=== PATIENT | male | born 1930 | race Caucasian/White ===

== ENCOUNTER 2017-02-04 13:02 | Outpatient (CLI) | payer MEDICARE, OTHER | END 2017-02-04 13:03 | disposition home or self-care (01) | LOC: SC 13:02 | PROVIDERS: ATTEND Internal Medicine Pulmonary Disease | DX: G47.30 Sleep apnea, unspecified (principal); G47.10 Hypersomnia, unspecified; R06.83 Snoring | CPT/HCPCS: 99203; G0463; 99212 ==

== ENCOUNTER 2017-02-18 09:40 | Outpatient (CLI) | payer MEDICARE, OTHER | END 2017-02-18 09:41 | disposition home or self-care (01) | LOC: SC 09:40 | PROVIDERS: ATTEND Internal Medicine Pulmonary Disease | DX: G47.33 Obstructive sleep apnea (adult) (pediatric) (principal) | CPT/HCPCS: 99213; G0463; 99212 ==

== ENCOUNTER 2017-09-26 14:45 | Observation (INO) | payer MEDICARE, OTHER ==
--- NOTE | 2017-09-26 15:24 | ED Physician Documentation ---
PD HPI FOCAL NEURO - Stated complaint Stated Complaint: UNSTEADY,TROUBLE TALKING,WEAK,LOW PULSE - Chief complaint Chief Complaint: Neuro - History obtained from History obtained from: Patient, Family (Daughter and ) - History of Present Illness Timing - onset: Yesterday (This is an 86-year-old gentleman with history of paroxysmal atrial fibrillation on Xarelto and Coreg who has had 2 episodes of the last couple of days. Yesterday he became very weak while walking and was slumping over to the right and the daughter describes right facial droop. They noted that his blood pressure at the time was at his baseline but his blood pressure cuff read a pulse of 31 and he had noted some episodes of bradycardia over the prior week but those were asymptomatic. It is similar episode today but the blood pressure cuff was not readily available and he had memory difficulties at the time to and is now back to normal. There are no recent medication changes.) Review of Systems Ten Systems: 10 systems reviewed and negative Constitutional: denies: Fever, Chills Cardiac: denies: Chest pain / pressure, Palpitations Respiratory: denies: Dyspnea, Cough GI: denies: Abdominal Pain Neurologic: denies: Headache PD PAST MEDICAL HISTORY - Past Medical History Cardiovascular: Coronary artery disease, Atrial fibrillation - Past Surgical History Past Surgical History: Yes Cardiovascular: Coronary stent - Present Medications Home Medications: Ambulatory Orders Medication Instructions Recorded Confirmed Calcium Carb, Citrate/Vit D3 1 tab ORAL DAILY 01/21/15 01/21/15 [Calcium + D3 ER Tablet] Carvedilol [Coreg] 25 mg PO DAILY 01/21/15 01/21/15 Nitroglycerin 0.4 mg SL DAILY PRN 01/21/15 01/21/15 Rivaroxaban [Xarelto] 20 mg PO DAILY 01/21/15 01/21/15 Simvastatin [Zocor] 20 mg PO DAILY 01/21/15 01/21/15 - Allergies Allergies/Adverse Reactions: Allergies Allergy/AdvReac Type Severity Reaction Status Date / Time JORDANA Inhibitors Allergy Edema Verified 09/26/17 14:59 ARB-Angiotensin Receptor Allergy Edema Verified 09/26/17 14:59 Antagonist - Social History Does the pt smoke?: No Smoking Status: Never smoker PD ED PE NORMAL - Vitals Vital signs reviewed: Yes - General General: Alert and oriented X 3, No acute distress - HEENT HEENT: PERRL, EOMI - Neck Neck: Supple, no meningeal sign, No bony TTP - Cardiac Cardiac: RRR, No murmur - Respiratory Respiratory: No respiratory distress, Clear bilaterally - Abdomen Abdomen: Normal bowel sounds, Soft, Non tender - Extremities Extremities: No edema, No calf tenderness / cord - Neuro Neuro: Alert and oriented X 3, Normal speech Eye Opening: Spontaneous Motor: Obeys Commands Verbal: Oriented GCS Score: 15 NIHSS - Time Time: 15:15 - Level of Consciousness Level of consciousness: (0) Alert, Keenly responsive LOC Questions: (0) Answers both Q's correct LOC Commands: (0) Performs both correctly - Gaze Best Gaze: (0) Normal - Visual Visual: (0) No loss - Facial Palsy Facial Palsy: (0) Normal, symmetrical movement - Motor Arms (both separate) Motor Arm (right): (0) No drift Motor Arm (left): (0) No drift - Motor Legs (both separate) Motor Leg (right): (0) No drift Motor Leg (left): (0) No drift - Limb Ataxia Limb Ataxia: (0) Absent - Best Language Best Language: (0) No aphasia - Dysarthria Dysarthria: (0) Normal - Extinction and Inattention (formally neg Extinction and inattention: (0) No abnormality Results - Vitals Vitals: Vital Signs - 24 hr 09/26/17 14:49 Temperature 36.2 C L Heart Rate 61 Respiratory 18 Rate Blood Pressure 145/76 H O2 Saturation 97 Oxygen O2 Source Room air - Labs Labs: Laboratory Tests 09/26/17 09/26/17 09/26/17 15:25 15:25 15:25 WBC 9.0 RBC 4.23 L Hgb 13.3 L Hct 39.7 L MCV 93.8 MCH 31.5 H MCHC 33.6 RDW 15.3 H Plt Count 193 MPV 8.1 Neut # (Auto) 5.8 Lymph # (Auto) 1.9 [place] # (Auto) 1.1 H Eos # (Auto) 0.2 Baso # (Auto) 0.0 Absolute Nucleated RBC 0.00 Nucleated RBC % 0.0 Sodium 140 Potassium 4.1 Chloride 104 Carbon Dioxide 29 Anion Gap 7.0 BUN 22 H Creatinine 0.8 Estimated GFR (MDRD) 92 Glucose 112 H Calcium 9.2 Magnesium 2.0 Total Bilirubin 0.5 AST 19 ALT 13 Alkaline Phosphatase 48 Troponin I < 0.04 Total Protein 6.8 Albumin 3.6 Globulin 3.2 Albumin/Globulin Ratio 1.1 Lipase 28 - Rads (name of study) CT Head Radiology: EMP read contemporaneously (Chronic microvascular changes without acute disease) PD MEDICAL DECISION MAKING - ED course ED course: 86-year-old gentleman with history of paroxysmal atrial fibrillation on Coreg 25 mg twice daily presents with what sounds like TIAs and symptomatic bradycardia episodes, this was not reproduced in the emergency department, but he has had some bradycardic episodes that were monitored at home. His exam now was normal. Seems like the thing to do would be to place him in observation and drop or discontinue the Coreg to see if he has further episodes, if he does he may need a pacemaker but if cessation of beta blockade is curative that would be all he needs. Spoke with Dr. Whitfield for observation at 1609. - Sepsis Event Vital Signs: Vital Signs - 24 hr 09/26/17 14:49 Temperature 36.2 C L Heart Rate 61 Respiratory 18 Rate Blood Pressure 145/76 H O2 Saturation 97 Oxygen O2 Source Room air Departure - Departure Disposition: ED Place in Observation Clinical Impression: TIA (transient ischemic attack), Symptomatic bradycardia Condition: Stable
[2017-09-26 15:36] LABS: BASOPHILS % (AUTO) 0.5 %; EOSINOPHILS # (AUTO) 0.2 10^3/uL (0.0-0.7); EOSINOPHILS % (AUTO) 1.8 %; HGB - HEMOGLOBIN 13.3 g/dL (14.0-18.0); LYMPHOCYTES # (AUTO) 1.9 10^3/uL (1.5-3.5); LYMPHOCYTES % (AUTO) 21.7 %; MEAN CORPUSCULAR HEMOGLOBIN 31.5 pg (27.0-31.0); MEAN CORPUSCULAR HGB CONC 33.6 g/dL (32.0-36.0); MEAN CORPUSCULAR VOLUME 93.8 fL (80.0-94.0); MEAN PLATELET VOLUME 8.1 fL (7.4-11.4); MONOCYTES # (AUTO) 1.1 10^3/uL (0.0-1.0); MONOCYTES % (AUTO) 11.9 %; NEUTROPHILS # (AUTO) 5.8 10^3/uL (1.5-6.6); NEUTROPHILS % (AUTO) 64.1 %; PLT - PLATELET COUNT 193 10^3/uL (130-450); RED BLOOD COUNT 4.23 10^6/uL (4.70-6.10); RED CELL DISTRIBUTION WIDTH 15.3 % (12.0-15.0)
[2017-09-26 15:49] LABS: ALBUMIN 3.6 g/dL (3.2-5.5); ALBUMIN/GLOBULIN RATIO 1.1 (1.0-2.2); BILIRUBIN,TOTAL 0.5 mg/dL (0.2-1.0); CALCIUM 9.2 mg/dL (8.5-10.3); CREATININE 0.8 mg/dL (0.6-1.2); TOTAL PROTEIN 6.8 g/dL (6.7-8.2)
--- NOTE | 2017-09-26 16:00 | CT Report ---
Procedure Date: 09/26/2017 Accession Number: [id number] / [id number] Procedure: CT - Head W/O CPT Code: FULL RESULT: EXAM: CT HEAD EXAM DATE: 09/26/2017 03:32 PM. CLINICAL HISTORY: Word-finding difficulties and fatigue and altered mental status. COMPARISON: None. TECHNIQUE: Multiaxial CT images were obtained from the foramen magnum to the vertex. Reformats: Sagittal and coronal. IV contrast: None. In accordance with CT protocol optimization, one or more of the following dose reduction techniques were utilized for this exam: automated exposure control, adjustment of mA and/or KV based on patient size, or use of iterative reconstructive technique. FINDINGS: Parenchyma: No intraparenchymal hemorrhage. No evidence of mass, midline shift, or CT findings of acute infarction. [place]-white differentiation is distinct. Diffuse chronic microangiopathic white matter changes are evident. 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 Extraaxial Spaces: Normal for age. No subdural or epidural collections identified. Ventricles: The ventricles and cortical sulci are enlarged, consistent with age-related tissue loss. Sinuses and orbits: Imaged paranasal sinuses, orbits, and mastoids show no significant abnormality. Bones: No evidence of fracture or calvarial defect. Other: Extensive calcifications are present in the cavernous carotid and vertebral arteries. Status post bilateral cataract procedures. IMPRESSION: 1. No acute intracranial abnormality. 2. Moderate microangiopathic ischemic changes. 3. Moderate cerebral and cerebellar volume loss. RADIA
[2017-09-26] MEDS ORDERED: SODIUM CHLORIDE FLUSH 0.9% 10 ML SYRINGE IVP PRN (16:35)
--- NOTE | 2017-09-26 16:37 | HISTORY & PHYSICAL EXAMINATION ---
Chief Complaint - Chief Complaint Chief Complaint: syncope History of Present Illness - Admitted From Admitted From:: ED - History Obtained From Records Reviewed: yes History obtained from: chart review, patient Exam Limitations: none - History of Present Illness HPI Comment/Other: Romero Arellano (Bob) is an 86-year old male with a past medical history of hypertension, hyperlipidemia, atrial fibrillation-on Xarelto, CAD-post coronary stent, CHF, MAUREEN-on CPAP x7 months, prostate CA, BPH, nocturia, cataract surgery , and previous hernia surgeries. Itz was has been noticing a "low heart rate with increased fatigue" in the past 2 months. Yesterday he was [place] with his [place] and had to wall-walk the entire time there. His family noticed some right facial droop, mild drooling, expressive aphasia, right upper body drift, and when asked about his flying history by a bystander, the patient could not get any words out. He was brought to the ED for further evaluation. Once in the ED, the patient had a resolution of symptoms, but remained with mild delayed responses, and some sluggish speech. Vital signs show a mild hypertension of 145/76, heart rate in the 60's, normal breathing with normal oxygen saturation. Labs show a slight anemia with an H/H of 13.3/ 39.7, normal electrolytes, and a negative troponin. On my exam the patient is neuro intact, normal exam, and still has some word finding difficulties. He will be admitted to observation status for further evaluation of this bradycardia and TIA. History - Past Medical History Cardiovascular: reports: Congestive heart failure, Hypertension, High cholesterol, Coronary artery disease, Atrial fibrillation, Murmur, Arrhythmia Respiratory: reports: Sleep apnea, CPAP use Neuro: reports: TIA Endocrine/Autoimmune: denies: Type 2 diabetes GI: reports: GERD BRAID CUTTER: reports: None : reports: Benign prostate hypertrophy, Nocturia HEENT: reports: Chronic vision loss, Chronic hearing loss Psych: reports: None Musculoskeletal: reports: Chronic back pain Derm: reports: None MRSA Hx?: No - Past Surgical History General: reports: Bowel surgery, Other (multiple hernia surgeries) Cardiovascular: reports: Coronary stent, Cardiac catheterization, Angioplasty HEENT: reports: Cataracts - Family & Social History Family History: Mother: , Father: , Cancer, Sister: Alive and Well Family History Comment/Other: The patient's mother lived until age 80 and from a brain aneurysm. His father of lung cancer in his 60's. His only sister is alive and well with heart disease. Living arrangement: At home Living Situation: With spouse/s.o. 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 He lives independently with his . He enjoys golfing. He denies tobacco, alcohol or illicit drug use. He wishes to be a DNR. - Substance History Use: Uses substance without health or social issues: NONE Abuse: Recurrent use of substance despite neg consequences: NONE Dependence: Experiences withdrawal or developed tolerances: NONE - POLST Patient has POLST: No POLST Status: DNR Meds/Allgy - Home Medications Home Medications: Ambulatory Orders Medication Instructions Recorded Confirmed Calcium Carb, Citrate/Vit D3 1 tab ORAL DAILY 01/21/15 09/26/17 [Calcium + D3 ER Tablet] Carvedilol [Coreg] 25 mg PO BID 01/21/15 09/26/17 Nitroglycerin 0.4 mg SL Q5M PRN 01/21/15 09/26/17 Rivaroxaban [Xarelto] 20 mg PO QDDINNER 01/21/15 09/26/17 Simvastatin [Zocor] 20 mg PO QPM 01/21/15 09/26/17 - Allergies Allergies/Adverse Reactions: Allergies Allergy/AdvReac Type Severity Reaction Status Date / Time JORDANA Inhibitors Allergy Edema Verified 09/26/17 14:59 ARB-Angiotensin Receptor Allergy Edema Verified 09/26/17 14:59 Antagonist Review of Systems - Constitutional Constitutional: reports: Fatigue, Weakness - Eyes Eyes: reports: Corrective lenses - Ears, Nose & Throat Ears, Nose & Throat: reports: Hearing loss - Cardiovascular Cariovascular: reports: Irregular heart rate, Edema, Syncope - Genitourinary Genitourinary: reports: Nocturia - Musculoskeletal Musculoskeletal: reports: Back pain (chronic) - Integumentary Integumentary: reports: Dryness - Neurological Neurological: reports: General weakness, Dizziness, Memory problems, Pre- existing deficit, Slurred speech (sluggish) - All Other Systems All Other Systems: reports: Reviewed and negative Exam - Vital Signs Reviewed Vital Signs: Yes Vital Signs: Vital Signs x48h Temp Pulse Resp BP Pulse Ox 09/26/17 14:49 36.2 C L 61 18 145/76 H 97 - Physical Exam General Appearance: positive: No acute distress, Alert Eyes Bilateral: positive: Normal inspection, PERRL ENT: positive: ENT inspection nml, Pharynx nml, Pharyngeal erythema, Dry mucous membranes Neck: positive: Nml inspection, Thyroid nml, No JVD, Trachea midline Respiratory: positive: Chest non-tender, No respiratory distress, Breath sounds nml Cardiovascular: positive: No gallop, Irregularly irregular, Systolic murmur, Decreased pulse(s) Peripheral Pulses: positive: 2+ Abdomen: positive: Non-tender, Nml bowel sounds Back: positive: Nml inspection Skin: positive: No rash, Warm, Dry Extremities: positive: Non-tender, Pedal edema Neurologic/Psychiatric: positive: Oriented x3, CN's nml (2-12), Motor nml, Sensation nml, Weakness, Sensory loss, Slurred/abnml speech, Depressed mood/ affect Reflexes: Bicep (R): 3+, Bicep (L): 3+ Conclusion/Plan - Problem List (1) Symptomatic bradycardia Conclusion/Plan: The patient admits to having symptoms for the past 2 months with slightly increased ataxia. He recently has been taking his blood pressure which has been slightly elevated; on 09/21/17 it was 152/87 HR 64, and 145/77 HR 31. This may have been in response to his high dose beta ned of coreg 25 mg BID. I suspect that the bradycardia is the result of his Coreg dosing. His heart has become more efficient and likely improved right sided heart pressures since being compliant with his home CPAP ~7 months ago, thereby decreasing the need for this higher dose. Plan to monitor on telemetry and likely start a very low dose of coreg at 3.125 mg BID. Plan: Continue syncope work up including orthostatic blood pressures and await echo results. (2) TIA (transient ischemic attack) Conclusion/Plan: The patient's explanation of symptoms including a right facial droop, right sided drift, and weakness have subsided. Since arriving in the hospital, the patient has had a full resolution, with the exception of some slight expressive aphasia. I have ordered a head MRI, as central/Zoya infarct is high on the differential list. Plan: Continue work up, resume Xarelto, give high dose Atorvastatin and ASA. (3) MAUREEN on CPAP Conclusion/Plan: The patient first developed atrial fibrillation about 3 years ago, which was likely a consequence of his undiscovered sleep apnea. He states that he got a sleep study as a result of an echocardiogram that was obtained by his analysis analyst in [place]. For the past ~7 months, he has been compliant and states that his apnea #s per hour went from 90 episodes to only 1-3 times per hour. Now that he has had several months of compliance, I suspect that his RVSP at rest is much improved. I have requested records from [facility] cardiology. I have ordered an echo. Plan: Continue to encourage compliance, and await echo results. (4) Hypertension Conclusion/Plan: The patient is only on coreg for this, but was noted to be hypertensive upon admission and is likely a consequence of his profound bradycardia. Plan: Continue to monitor on telemetry. HOLD coreg and he will likely be on a devastatingly low dose (~3.125mg PO). Qualifiers: Hypertension type: essential hypertension Qualified Code(s): I10 - Essential (primary) hypertension - Lab Results Lab results reviewed: Yes Hair Bones: 09/26/17 15:25 09/26/17 15:25 - Diagnostic Imaging Results Diagnostic Imaging Results: positive: Prelim report reviewed, Final report reviewed - EKG Results EKG Interpreted Independently: Yes Core Measures - Anticipated LOS I expect patient to be DC'd or transferred within 96 hours.: Yes - DVT/VTE - Prophylaxis VTE/DVT Device ordered at admit?: Yes VTE/DVT Prophylaxis med ordered at admit?: Yes - Stroke - Rehab Assessment Rehab services assessment to be ordered?: Yes - AMI - Statin at Admit Aspirin Prescribed on Admit: Yes
[2017-09-26] MEDS ORDERED: NITROGLYCERIN 0.4 MG SL PRN (17:43)
[2017-09-26] MEDS ORDERED: RIVAROXABAN 20 MG PO SCH (18:00)
--- NOTE | 2017-09-26 20:36 | ADVANCE CARE PLANNING NOTE ---
Advance Care Planning - Date/Time Date: 09/26/17 Time: 20:35 - Code Status Code Status: Attempt Resuscitation
[2017-09-26] MEDS ORDERED: ATORVASTATIN 40 MG TABLET PO SCH (21:00)
[2017-09-26] MEDS: SODIUM CHLORIDE FLUSH 0.9% 10 ML SYRINGE IVP SCH (21:57)
--- NOTE | 2017-09-26 23:19 | Ultrasound Report ---
Procedure Date: 09/26/2017 Accession Number: [id number] / [id number] Procedure: US - Carotid Doppler Complete CPT Code: FULL RESULT: EXAM: BILATERAL CAROTID AND VERTEBRAL ARTERY DUPLEX DOPPLER ULTRASOUND: EXAM DATE: 09/26/2017 10:35 PM CLINICAL HISTORY: Syncope. COMPARISON: None. TECHNIQUE: Grayscale imaging, color Doppler, and duplex spectral Doppler were used to evaluate the carotid and vertebral arteries bilaterally. Static images were obtained. FINDINGS: Moderate atheromatous plaques are present in the right carotid bulb extending into the internal carotid artery. Spectral broadening with elevated velocities at the origin of the right internal carotid artery is compatible with a stenosis of 50-69%. Moderate atheromatous plaques are present in the left carotid bulb extending into the internal carotid artery. However, no hemodynamically significant stenoses are noted. Visualized portions of the neck soft tissues are grossly unremarkable. Both vertebral arteries are antegrade in flow. Normal antegrade flow is present in bilateral vertebral arteries. VELOCITIES (cm/sec): Right: RCCA Prox: PSV 70.0 cm/sec. RCCA Dist: PSV 55.5 cm/sec, EDV 11.7 cm/sec. RECA: PSV 100.6 cm/sec. R Bulb: PSV 100.1 cm/sec, EDV 13.5 cm/sec, ICA/CCA ratio 1.8. TRELL Prox: PSV 182.3 cm/sec, EDV 43.3 cm/sec, ICA/CCA ratio 3.3, degree of stenosis >50%%. TRELL Mid: PSV 99.3 cm/sec, EDV 18.3 cm/sec, ICA/CCA ratio 1.8. TRELL Dist: PSV 79.7 cm/sec, EDV 30.1 cm/sec, ICA/CCA ratio 1.4. RVA: PSV 44.1 cm/sec. RVA flow direction: Antegrade. Left: LCCA Prox: PSV 57.1 cm/sec. LCCA Dist: PSV 100.0 cm/sec, EDV 26.80 cm/sec. LECA: PSV 90.2 cm/sec. L Bulb: PSV 75.6 cm/sec, EDV 18.7 cm/sec, ICA/CCA ratio .7. LICA Prox: PSV 70.1 cm/sec, EDV 17 cm/sec, ICA/CCA ratio .7. LICA Mid: PSV 76.5 cm/sec, EDV 22.9 cm/sec, ICA/CCA ratio .8. LICA Dist: PSV 67.8 cm/sec, EDV 14.3 cm/sec, ICA/CCA ratio .7. LVA: PSV 28.5 cm/sec. LVA flow direction: Antegrade. ICA diameter stenosis: Right: 50-69% by velocity and <70% by NASCET criteria. Left: <50% by velocity and <70% by NASCET criteria. IMPRESSION: 1. Moderate bilateral carotid artery plaquing. 2. On the right, 50-69% stenosis at the origin of the right internal carotid artery. 3. In the left carotid artery there are no elevated carotid artery velocities to suggest hemodynamically significant stenosis. 4. Normal antegrade flow is present in bilateral vertebral arteries. General Recommendations: Stenosis =50% ICA - Follow-up ultrasound 6-12 months Stenosis <50% ICA - High Risk Patient with plaque - Follow-up ultrasound 1-2 years Normal Study but High Risk Patient - Follow-up ultrasound 3-5 years Management recommendations and diagnostic criteria are based on current IAC endorsed standards in Carotid Artery Stenosis: Grayscale and Doppler Ultrasound Diagnosis. Validated velocity measurements with angiographic measurements and velocity criteria are extrapolated from diameter data as defined by the Society of Radiologists in Ultrasound Consensus Conference Radiology 2003; 229;340-346. RADIA
[2017-09-26] MEDS: ASPIRIN 325 MG TABLET PO SCH (23:50)
[2017-09-27] MEDS: SODIUM CHLORIDE FLUSH 0.9% 10 ML SYRINGE IVP SCH ×2 (00:01→08:11)
[2017-09-27 04:41] LABS: BASOPHILS % (AUTO) 0.5 %; EOSINOPHILS # (AUTO) 0.2 10^3/uL (0.0-0.7); HGB - HEMOGLOBIN 13.2 g/dL (14.0-18.0); LYMPHOCYTES # (AUTO) 1.9 10^3/uL (1.5-3.5); LYMPHOCYTES % (AUTO) 22.8 %; MEAN CORPUSCULAR HEMOGLOBIN 30.8 pg (27.0-31.0); MEAN CORPUSCULAR HGB CONC 32.5 g/dL (32.0-36.0); MEAN CORPUSCULAR VOLUME 94.6 fL (80.0-94.0); MEAN PLATELET VOLUME 8.5 fL (7.4-11.4); MONOCYTES % (AUTO) 11.4 %; NEUTROPHILS # (AUTO) 5.4 10^3/uL (1.5-6.6); NEUTROPHILS % (AUTO) 63.3 %; PLT - PLATELET COUNT 186 10^3/uL (130-450); RED BLOOD COUNT 4.28 10^6/uL (4.70-6.10); RED CELL DISTRIBUTION WIDTH 15.3 % (12.0-15.0); WHITE BLOOD COUNT 8.5 x10^3/uL (4.8-10.8)
[2017-09-27 04:57] LABS: ALBUMIN 3.1 g/dL (3.2-5.5); ALKALINE PHOSPHATASE 42 IU/L (42-121); ALT ALANINE AMINOTRANSFERASE 12 IU/L (10-60); AST ASPARTATE AMINOTRANSFERASE 19 IU/L (10-42); BILIRUBIN,TOTAL 1.1 mg/dL (0.2-1.0); BUN - BLOOD UREA NITROGEN 19 mg/dL (6-20); CALCIUM 8.7 mg/dL (8.5-10.3); CARBON DIOXIDE - CO2 28 mmol/L (21-32); CHLORIDE 103 mmol/L (101-111); CHOLESTEROL 125 mg/dL; CREATININE 0.9 mg/dL (0.6-1.2); GFR - MDRD 80 (>89); GLUCOSE 99 mg/dL (70-100); HDL CHOLESTEROL 42 mg/dL; LDL CHOLESTEROL,CALCULATED 72 mg/dL; LDL/HDL RATIO 1.7 (<3.6); SODIUM 137 mmol/L (135-145); TOTAL PROTEIN 6.2 g/dL (6.7-8.2); VLDL CHOLESTEROL 11 mg/dL
[2017-09-27 06:12] LABS: HB2 TOTAL 13.8 g/dL; HEMOGLOBIN A1C 0.55 g/dL; HEMOGLOBIN A1C % 5.8 % (4.6-6.2)
[2017-09-27 07:51] VITALS: BP 160/90
[2017-09-27] MEDS: ASPIRIN 325 MG TABLET PO SCH (08:10)
[2017-09-27] MEDS ORDERED: POLYETHYLENE GLYCOL 3350 17 GM PACKET PO SCH (09:00)
--- NOTE | 2017-09-27 13:20 | MRI Report ---
Procedure Date: 09/27/2017 Accession Number: [id number] / [id number] Procedure: MRI - Brain W/O CPT Code: FULL RESULT: EXAM: MRI BRAIN WITHOUT CONTRAST EXAM DATE: 09/27/2017 11:36 AM. CLINICAL HISTORY: Syncope. Dizziness COMPARISON: CT head without contrast 09/26/2017. TECHNIQUE: Multiplanar, multisequence T1-weighted and fluid-sensitive MR sequences of the brain were performed. Sequences optimized for routine evaluation. Other: None. IV Contrast: None. FINDINGS: 9.3 mm diffusion restriction in the left globus pallidus (image 104 series 505) compatible with recent infarct. Focus is correlated to hyperintensity on T2-weighted imaging, and hypointensity on T1-weighted sequence suggestive of infarct at least 16 hours old. There is no evidence for hemorrhage, midline shift or hydrocephalus. Diffusion-weighted sequence shows otherwise normal. 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 There are dilated perivascular spaces in the basal ganglia bilaterally. There is chronic infarct in the left postcentral gyrus superiorly. Major intracranial flow voids are preserved. Orbits, paranasal sinuses and mastoid air cells are unremarkable. The chiasm, pituitary, cavernous sinus and Meckel's cave appear unremarkable. Craniocervical junction and visualized upper cervical cord unremarkable. IMPRESSION: 1. 9.3 mm focus of recent infarct in the left globus pallidus, signal suggestive of infarct at least 16 hours old. 2. No intracranial hemorrhage, midline shift or hydrocephalus. 3. Confluent white matter T2 hyperintensities, most likely chronic microvascular angiopathy. 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 RADIA The above findings were discussed with Dr. Bhaskar Sharp by Dr. Wei Toledo at 13:18 hrs on 09/27/17.
--- NOTE | 2017-09-27 14:19 | Discharge Plan ---
Discharge Plan Disposition: Home, Self Care Condition: Poor Prescriptions: Simvastatin [Zocor] 80 mg PO QPM #20 tablet Diet: Cardiac Activity Restrictions: Activity as Tolerated Shower Restrictions: No (fall precaution) Instruction Topics: Stroke Ischemic, Simvastatin tablets Additional Instructions or Follow Up instructions: You may see your PCP in 3-4 days, see lap welder in one week, and see neurologist as out-pt. After consulting with neurologist, you may continue to have Xarelto as your schedule, increase your simvastatin to 80 mg daily. You may follow up your lap welder to monitor your low heart rate, your Coreg is hold now. The hydrochlorothiazide is now prescribed for control of your HTN. Please follow up your PCP. Follow-Up Care: Outpatient Rehab - PT, Outpatient Rehab - OT No Smoking: If you smoke, Please STOP! Call for help. Follow-up with: Peyman Holder MD [Primary Care Provider] -
--- NOTE | 2017-09-27 14:37 | DISCHARGE SUMMARY ---
Discharge Summary Discharge Date: 09/27/17 Discharging Provider: ZAIDI Primary Care Provider: Dr. Marquez Condition at Discharge: Poor Discharge Disposition: 01 Home, Self Care Discharge Facility Name: home - DIAGNOSES Admission Diagnoses: (1) Symptomatic bradycardia (2) TIA (transient ischemic attack) (3) MAUREEN on CPAP (4) Hypertension Discharge Diagnoses with Status of Each Condition: (1) Symptomatic bradycardia pt's HR is above 60 all the time in the hospital course after pt's Coreg is hold. pt is asymptomatic at hospital. I discussed with pt and his family about holding of Coreg until pt see his interior design program chair. Pt has appointment to see his interior design program chair in the coming next week per pt report. (2) TIA (transient ischemic attack) pt denies any residence of focal neurological deficit. 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 I discussed all pt's test including ECHO, US of Carotid, and MRI results with pt and his family. I also consult with [facility] neurologist Dr. Toledo. Neurologist recommend pt continue to have Xarelto, and increase of Samvastatin to 80mg daily. (3) MAUREEN on CPAP stable, continue CPAP and follow up PCP (4) Hypertension stable, hold Coreg for bradycardia, low dosage of HCTZ is prescribed for pt for control his BP. Pt is allergy to JORDANA and ARB inhibitor, beta-ned affect pt' s bradycardia. - HPI History of Present Illness: refer from Ms. Calderon's HPI for pt as the following: Romero Arellano (Bob) is an 86-year old male with a past medical history of hypertension, hyperlipidemia, atrial fibrillation-on Xarelto, CAD-post coronary stent, CHF, MAUREEN-on CPAP x7 months, prostate CA, BPH, nocturia, cataract surgery , and previous hernia surgeries. Itz was has been noticing a "low heart rate with increased fatigue" in the past 2 months. Yesterday he was at a local [employer] with his family and had to wall-walk the entire time there. His family noticed some right facial droop, mild drooling, expressive aphasia, right upper body drift, and when asked about his flying history by a bystander, the patient could not get any words out. He was brought to the ED for further evaluation. Once in the ED, the patient had a resolution of symptoms, but remained with mild delayed responses, and some sluggish speech. Vital signs show a mild hypertension of 145/76, heart rate in the 60's, normal breathing with normal oxygen saturation. Labs show a slight anemia with an H/H of 13.3/ 39.7, normal electrolytes, and a negative troponin. On my exam the patient is neuro intact, normal exam, and still has some word finding difficulties. He will be admitted to observation status for further evaluation of this bradycardia and TIA. - ALLERGIES Allergies/Adverse Reactions: Allergies Allergy/AdvReac Type Severity Reaction Status Date / Time JORDANA Inhibitors Allergy Edema Verified 09/26/17 14:59 ARB-Angiotensin Receptor Allergy Edema Verified 09/26/17 14:59 Antagonist - MEDICATIONS Home Medications: Ambulatory Orders Medication Instructions Recorded Confirmed Calcium Carb, Citrate/Vit D3 1 tab ORAL DAILY 01/21/15 09/26/17 [Calcium + D3 ER Tablet] Nitroglycerin 0.4 mg SL Q5M PRN 01/21/15 09/26/17 Rivaroxaban [Xarelto] 20 mg PO QDDINNER 01/21/15 09/26/17 Hydrochlorothiazide 12.5 mg PO DAILY #7 tablet 09/27/17 Simvastatin [Zocor] 80 mg PO QPM #20 tablet 09/27/17 - PHYSICAL EXAM AT DISCHARGE General Appearance: positive: No acute distress, Alert. negative: Lethargic Eyes Bilateral: positive: Normal inspection, PERRL, No lid inflammation, Conjunctivae nml ENT: positive: ENT inspection nml, Pharynx nml, No signs of dehydration. negative: Purulent nasal drainage, Pharyngeal erythema, Oral lesions Neck: positive: Nml inspection, Thyroid nml, No JVD, Trachea midline. negative : Thyromegaly, Lymphadenopathy (R), Lymphadenopathy (L), Stiff neck, Swelling/ bruising, Tracheal deviation Respiratory: positive: Chest non-tender, No respiratory distress, Breath sounds nml. negative: Wheezes, Rales, Rhonchi Cardiovascular: positive: Regular rate & rhythm, No murmur, No gallop. negative : Irregularly irregular, Extrasystoles, Tachycardia, Bradycardia, JVD present, Systolic murmur, Diastolic murmur Peripheral Pulses: positive: 2+ Abdomen: positive: Non-tender, No organomegaly, Nml bowel sounds, No distention. negative: Tenderness, Guarding, Rebound Back: positive: Nml inspection. negative: CVA tenderness (R), CVA tenderness (L ) Skin: positive: Color nml, No rash, Warm, Dry. negative: Cyanosis, Diaphoresis , Pallor Extremities: positive: Non-tender, Full ROM, Nml appearance. negative: Calf tenderness, Joint swelling, Nahed's sign/cords Neurologic/Psychiatric: positive: Oriented x3, Motor nml, Sensation nml, Mood/ affect nml. negative: Weakness, Sensory loss, Facial droop, Slurred/abnml speech, Depressed mood/affect - LABS Result Diagrams: 09/27/17 04:15 09/27/17 04:15 - FOLLOW UP Follow Up: You may see your PCP in 3-4 days, see interior design program chair in one week, and see neurologist as out-pt. After consulting with neurologist, you may continue to have Xarelto as your schedule, increase your simvastatin to 80 mg daily. You may follow up your interior design program chair to monitor your low heart rate, your Coreg is hold now. The hydrochlorothiazide is now prescribed for control of your HTN. Please follow up your PCP. Should your symptoms return or worsen, you may present ER or call 911 for help. - TIME SPENT Time Spent in Discharge (Minutes): 45
== END 2017-09-27 15:38 | disposition home or self-care (01) ==
LOC: ED 14:45 → MS3 16:35
PROVIDERS: ADMIT Nurse Practitioner; ATTEND Nurse Practitioner Gerontology
DX: I63.231 Cerebral infarction due to unspecified occlusion or stenosis of right carotid arteries (principal); R29.700 NIHSS score 0; R47.01 Aphasia; R29.810 Facial weakness; G81.91 Hemiplegia, unspecified affecting right dominant side; R00.1 Bradycardia, unspecified; G47.33 Obstructive sleep apnea (adult) (pediatric); I11.0 Hypertensive heart disease with heart failure; I50.9 Heart failure, unspecified; E78.5 Hyperlipidemia, unspecified; I48.0 Paroxysmal atrial fibrillation; I25.10 Atherosclerotic heart disease of native coronary artery without angina pectoris; N40.1 Benign prostatic hyperplasia with lower urinary tract symptoms; R35.1 Nocturia; D64.9 Anemia, unspecified; H54.7 Unspecified visual loss; H91.90 Unspecified hearing loss, unspecified ear; G89.29 Other chronic pain; M54.9 Dorsalgia, unspecified; Z79.01 Long term (current) use of anticoagulants; Z79.899 Other long term (current) drug therapy; Z95.5 Presence of coronary angioplasty implant and graft; Z85.46 Personal history of malignant neoplasm of prostate; Z66 Do not resuscitate
CPT/HCPCS: 36415; 70450; 70551; 80053; 80061; 83036; 83690; 83735; 84443; 84484; 85025; 93005; 93306; 93880; 99283; 99284; A9270; G0378; 83721

== ENCOUNTER 2017-09-28 12:15 | Outpatient (CLI) | payer MEDICARE, OTHER | END 2017-09-28 12:16 | disposition critical access hospital (66) | LOC: EMS 12:15 | PROVIDERS: ATTEND Surgery | DX: M25.569 Pain in unspecified knee (principal); R53.1 Weakness; R41.0 Disorientation, unspecified; W18.30XA Fall on same level, unspecified, initial encounter; Y92.009 Unspecified place in unspecified non-institutional (private) residence as the place of occurrence of the external cause | CPT/HCPCS: A0425; A0427; A0429 ==

== ENCOUNTER 2017-09-28 12:39 | Emergency (ER) | payer MEDICARE, OTHER ==
--- NOTE | 2017-09-28 12:48 | ED Physician Documentation ---
History of Present Illness - Stated complaint Stated Complaint: GLF - History obtained from History obtained from: Patient, Family, EMS - History of Present Illness Timing: Today, How many hours ago (1) Pain level max: 0 Pain level now: 0 Improved by: nothing Worsened by: nothing - Additonal information Additional information: Patient is an 86-year-old male who was out in the garden today, states that he was watering his dubose went to put the hose away and thinks that he fell, but may have passed out, pt is unsure. Since that time his has noticed him to be confused. He does seem to have some trouble answering questions and takes a long time to respond. He denies any headache. He is on Xarelto. Was recently discharged from the hospital after a possible stroke. Review of Systems Ten Systems: 10 systems reviewed and negative Constitutional: denies: Fever, Chills Eyes: denies: Decreased vision, Photophobia Ears: denies: Ear pain Nose: denies: Rhinorrhea / runny nose, Congestion Throat: denies: Sore throat Cardiac: denies: Chest pain / pressure Respiratory: denies: Cough GI: denies: Abdominal Pain, Nausea, Vomiting, Diarrhea Skin: denies: Rash Musculoskeletal: denies: Neck pain, Back pain Neurologic: reports: Generalized weakness, Altered mental status (confused to time). 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: None : Benign prostate hypertrophy, Nocturia HEENT: Chronic vision loss, Chronic hearing loss Psych: None Musculoskeletal: Chronic back pain Derm: None - Past Surgical History Past Surgical History: Yes General: Bowel surgery, Other (multiple hernia surgeries) Cardiovascular: Coronary stent, Cardiac catheterization, Angioplasty HEENT: Cataracts - Present Medications Home Medications: Ambulatory Orders Medication Instructions Recorded Confirmed Calcium Carb, Citrate/Vit D3 1 tab ORAL DAILY 01/21/15 09/26/17 [Calcium + D3 ER Tablet] Nitroglycerin 0.4 mg SL Q5M PRN 01/21/15 09/26/17 Rivaroxaban [Xarelto] 20 mg PO QDDINNER 01/21/15 09/26/17 Hydrochlorothiazide 12.5 mg PO DAILY #7 tablet 09/27/17 Simvastatin [Zocor] 80 mg PO QPM #20 tablet 09/27/17 - Allergies Allergies/Adverse Reactions: Allergies Allergy/AdvReac Type Severity Reaction Status Date / Time JORDANA Inhibitors Allergy Edema Verified 09/28/17 12:49 ARB-Angiotensin Receptor Allergy Edema Verified 09/28/17 12:49 Antagonist - Social History Does the pt smoke?: No Smoking Status: Never smoker Does the pt drink ETOH?: No Does the pt have substance abuse?: No - Immunizations Immunizations are current?: Yes Immunizations: TDAP current <10years - POLST Patient has POLST: No POLST Status: DNR PD ED PE NORMAL - Vitals Vital signs reviewed: Yes - General General: No acute distress, Well developed/nourished - HEENT HEENT: Atraumatic, PERRL, Ears normal, Moist mucous membranes, Pharynx benign - Neck Neck: Supple, no meningeal sign, No bony TTP - Cardiac Cardiac: RRR, Strong equal pulses - Respiratory Respiratory: No respiratory distress, Clear bilaterally - Abdomen Abdomen: Soft, Non tender, Non distended - Back Back: No spinal TTP - Derm Derm: Warm and dry - Extremities Extremities: No deformity, No tenderness to palpate, Normal ROM s pain, Other ( B knee abrasions) - Neuro Neuro: No motor deficit, No sensory deficit, Other (alert, oriented to person and place. states the year is 1983) Eye Opening: Spontaneous Motor: Obeys Commands Verbal: Confused GCS Score: 14 - Psych Psych: Normal mood, Normal affect Results - Vitals Vitals: Vital Signs - 24 hr 09/28/17 09/28/17 09/28/17 12:42 14:37 15:22 Temperature 36.9 C Heart Rate 70 68 Respiratory 16 22 Rate Blood Pressure 160/83 H 160/80 H O2 Saturation 93 96 09/28/17 15:25 Temperature Heart Rate 68 Respiratory 16 Rate Blood Pressure 160/96 H O2 Saturation 97 Oxygen O2 Source Room air - EKG (time done) 1315 Rate: Rate (enter#) (71) Rhythm: NSR, Other (PVC) [place]: Normal Intervals: Normal [place] QRS: Normal Ischemia: Normal ST segments - Labs Labs: Laboratory Tests 09/28/17 09/28/17 09/28/17 13:05 13:05 13:05 WBC 9.8 RBC 4.51 L Hgb 14.0 Hct 42.5 MCV 94.3 H MCH 31.0 MCHC 32.9 RDW 15.4 H Plt Count 205 MPV 8.3 Neut # (Auto) 7.0 H Lymph # (Auto) 1.6 [place] # (Auto) 1.0 Eos # (Auto) 0.2 Baso # (Auto) 0.0 Absolute Nucleated RBC 0.00 Nucleated RBC % 0.0 Sodium 137 Potassium 4.1 Chloride 104 Carbon Dioxide 26 Anion Gap 7.0 BUN 19 Creatinine 0.9 Estimated GFR (MDRD) 80 L Glucose 100 Calcium 9.2 Total Bilirubin 1.1 H AST 23 ALT 16 Alkaline Phosphatase 49 Troponin I < 0.04 Total Protein 7.0 Albumin 3.5 Globulin 3.5 Albumin/Globulin Ratio 1.0 Lipase 28 Urine Color Urine Clarity Urine pH Ur Specific [place] Urine Protein Urine Glucose (UA) Urine Ketones Urine Occult Blood Urine Nitrite Urine Bilirubin Urine Urobilinogen Ur Leukocyte Esterase Ur Microscopic Review Urine Culture Comments 09/28/17 13:45 WBC RBC Hgb Hct MCV MCH MCHC RDW Plt Count MPV Neut # (Auto) Lymph # (Auto) [place] # (Auto) Eos # (Auto) Baso # (Auto) Absolute Nucleated RBC Nucleated RBC % Sodium Potassium Chloride Carbon Dioxide Anion Gap BUN Creatinine Estimated GFR (MDRD) Glucose Calcium Total Bilirubin AST ALT Alkaline Phosphatase Troponin I Total Protein Albumin Globulin Albumin/Globulin Ratio Lipase Urine Color YELLOW Urine Clarity CLEAR Urine pH 7.0 Ur Specific [place] <=1.005 Urine Protein NEGATIVE Urine Glucose (UA) NEGATIVE Urine Ketones NEGATIVE Urine Occult Blood NEGATIVE Urine Nitrite NEGATIVE Urine Bilirubin NEGATIVE Urine Urobilinogen 0.2 (NORMAL) Ur Leukocyte Esterase NEGATIVE Ur Microscopic Review NOT INDICATED Urine Culture Comments NOT INDICATED - Rads (name of study) head CT Radiology: Prelim report reviewed, EMP read contemporaneously, See rad report ( no acute abnormality) PD MEDICAL DECISION MAKING - ED course Complexity details: reviewed old records, reviewed results, re-evaluated patient , considered differential, d/w patient, d/w family ED course: Patient is an 86-year-old male who was recently admitted to the hospital for a stroke. Today he tripped and fell. Does not seem to be a syncopal event per family. No acute findings on EKG or telemetry here. Normal head CT. He initially was altered in the urgency department but his rapidity of speech improved and his mental status was nearly back to normal, though still occasionally confused about time. Family is comfortable taking him home at this time to follow-up with his doctor. They will return sooner if he worsens. NIH stroke scale is 1. Wounds cleansed and bandaged. td UTD Patient and family counseled regarding signs and symptoms for which I believe and urgent re- evaluation would be necessary. Patient with good understanding of and agreement to plan and is comfortable going home at this time This document was made in part using voice recognition software. While efforts are made to proofread this document, sound alike and grammatical errors may occur. - Sepsis Event Vital Signs: Vital Signs - 24 hr 09/28/17 09/28/17 09/28/17 12:42 14:37 15:22 Temperature 36.9 C Heart Rate 70 68 Respiratory 16 22 Rate Blood Pressure 160/83 H 160/80 H O2 Saturation 93 96 09/28/17 15:25 Temperature Heart Rate 68 Respiratory 16 Rate Blood Pressure 160/96 H O2 Saturation 97 Oxygen O2 Source Room air Departure - Departure Disposition: 01 Home, Self Care Clinical Impression: Abrasion of knee, bilateral Fall Qualifiers: Encounter type: initial encounter Qualified Code(s): W19.XXXA - Unspecified fall, initial encounter Altered mental status Qualifiers: Altered mental status type: unspecified Qualified Code(s): R41.82 - Altered mental status, unspecified Condition: Good Instructions: ED Abrasion, ED Mechanical Fall Follow-Up: Peyman Holder MD [Primary Care Provider] - Within 1 week Comments: Return if you worsen. Make sure to follow up with your doctor for further care. Discharge Date/Time: 09/28/17 15:30 NIHSS - Time Time: 12:40 - Level of Consciousness Level of consciousness: (0) Alert, Keenly responsive LOC Questions: (1) Answers one Q correctly LOC Commands: (0) Performs both correctly - Gaze Best Gaze: (0) Normal - Visual Visual: (0) No loss - Facial Palsy Facial Palsy: (0) Normal, symmetrical movement - Motor Arms (both separate) Motor Arm (right): (0) No drift Motor Arm (left): (0) No drift - Motor Legs (both separate) Motor Leg (right): (0) No drift Motor Leg (left): (0) No drift - Limb Ataxia Limb Ataxia: (0) Absent - Sensory Sensory: (0) Normal - Best Language Best Language: (0) No aphasia - Dysarthria Dysarthria: (0) Normal - Extinction and Inattention (formally neg Extinction and inattention: (0) No abnormality - Total Score/Results Total Score/Result: 1
[2017-09-28 13:18] LABS: BASOPHILS % (AUTO) 0.5 %; EOSINOPHILS # (AUTO) 0.2 10^3/uL (0.0-0.7); EOSINOPHILS % (AUTO) 1.8 %; LYMPHOCYTES # (AUTO) 1.6 10^3/uL (1.5-3.5); LYMPHOCYTES % (AUTO) 16.3 %; MEAN CORPUSCULAR HGB CONC 32.9 g/dL (32.0-36.0); MEAN CORPUSCULAR VOLUME 94.3 fL (80.0-94.0); MEAN PLATELET VOLUME 8.3 fL (7.4-11.4); MONOCYTES % (AUTO) 10.1 %; NEUTROPHILS % (AUTO) 71.3 %; PLT - PLATELET COUNT 205 10^3/uL (130-450); RED BLOOD COUNT 4.51 10^6/uL (4.70-6.10); RED CELL DISTRIBUTION WIDTH 15.4 % (12.0-15.0); WHITE BLOOD COUNT 9.8 x10^3/uL (4.8-10.8)
--- NOTE | 2017-09-28 13:20 | CT Report ---
Procedure Date: 09/28/2017 Accession Number: [id number] / [id number] Procedure: CT - Head W/O CPT Code: FULL RESULT: EXAM: CT HEAD EXAM DATE: 09/28/2017 01:04 PM. CLINICAL HISTORY: Aloc s/p fall. COMPARISON: 09/26/2017. TECHNIQUE: Multiaxial CT images were obtained from the foramen magnum to the vertex. Reformats: Sagittal and coronal. IV contrast: None. In accordance with CT protocol optimization, one or more of the following dose reduction techniques were utilized for this exam: automated exposure control, adjustment of mA and/or KV based on patient size, or use of iterative reconstructive technique. FINDINGS: Parenchyma: No intraparenchymal hemorrhage. No evidence of mass, midline shift, or CT findings of infarction. [place]-white differentiation is distinct. Mild hypoattenuation in the supratentorial white matter. Extraaxial Spaces: Mild volume loss. No subdural or epidural collections identified. Ventricles: Normal in size and position. Sinuses and Orbits: Imaged paranasal sinuses, orbits, and mastoids show no significant abnormality. Bones: No evidence of fracture or calvarial defect. Other: None. IMPRESSION: No acute intracranial abnormality. RADIA
[2017-09-28 13:25] LABS: ALBUMIN 3.5 g/dL (3.2-5.5); BILIRUBIN,TOTAL 1.1 mg/dL (0.2-1.0); CALCIUM 9.2 mg/dL (8.5-10.3); CREATININE 0.9 mg/dL (0.6-1.2)
[2017-09-28 14:12] LABS: BILIRUBIN,URINE NEGATIVE (NEGATIVE); GLUCOSE, URINE (UA) NEGATIVE (NEGATIVE); KETONES,URINE (UA) NEGATIVE (NEGATIVE); LEUKOCYTE ESTERASE, URINE NEGATIVE (NEGATIVE); NITRITE,URINE NEGATIVE (NEGATIVE); OCCULT BLOOD,URINE NEGATIVE (NEGATIVE); PROTEIN,URINE NEGATIVE (NEGATIVE); UROBILINOGEN,URINE 0.2 (NORMAL) E.U./dL (NORMAL)
[2017-09-28 14:13] LABS: CLARITY,URINE CLEAR (CLEAR)
[2017-09-28] MEDS ORDERED: BACITRACIN OINT TOP STA (15:08)
[2017-09-28 16:27] VITALS: BP 160/96
== END 2017-09-28 15:30 | disposition home or self-care (01) ==
LOC: EDBD → ED 12:39
DX: R41.82 Altered mental status, unspecified (principal); E78.00 Pure hypercholesterolemia, unspecified; I11.0 Hypertensive heart disease with heart failure; I50.9 Heart failure, unspecified; I25.10 Atherosclerotic heart disease of native coronary artery without angina pectoris; I48.91 Unspecified atrial fibrillation; G47.30 Sleep apnea, unspecified; Z86.73 Personal history of transient ischemic attack (TIA), and cerebral infarction without residual deficits; Z79.01 Long term (current) use of anticoagulants; R40.2412 Glasgow coma scale score 13-15, at arrival to emergency department
CPT/HCPCS: 36415; 70450; 80053; 81001; 81003; 83690; 84484; 85025; 87086; 93005; 99284

== ENCOUNTER 2017-09-28 20:47 | Outpatient (CLI) | payer MEDICARE, OTHER | END 2017-09-28 20:48 | disposition critical access hospital (66) | LOC: EMS 20:47 | PROVIDERS: ATTEND Surgery | DX: R53.1 Weakness (principal); R41.0 Disorientation, unspecified ==

== ENCOUNTER 2017-09-28 21:01 | Inpatient (IN) | payer MEDICARE, OTHER ==
--- NOTE | 2017-09-28 21:04 | ED Physician Documentation ---
PD HPI FOCAL NEURO - Stated complaint Stated Complaint: POSS STROKE - History obtained from History obtained from: Patient, Family, EMS - History of Present Illness Timing - onset: Enter time (19:30), Today Timing - details: Abrupt onset Severity of deficit: Moderate Weakness: Arm, Leg Associated symptoms: Fall (fell earlier today) Contributing factors: positive: Anticoagulated (xarelto) Recently seen: Emergency Dept, Admitted - Additional information Additional information: Admitted to [facility] 09/26 and discharged 09/27 for CVA, returned earlier today due to fall and d/c after ED w/u including repeat CTH. He returns at this time for right-sided weakness that began approximately 7:30 PM tonight. Family noticed patient was "dragging his right leg" (per family), and subsequently had difficulty even standing due to right-sided weakness. EMS report that they noted weakness to both RUE and RLE. Patient also had confusion this evening; his recent records indicate episodic confusion, although family says it was noticeably worse this evening. On my evaluation, patient says he feels well, has no c/o. blood sugar 110 by medics en route Review of Systems Constitutional: reports: Reviewed and negative Eyes: reports: Reviewed and negative Ears: reports: Reviewed and negative Nose: reports: Reviewed and negative Throat: reports: Reviewed and negative Cardiac: reports: Reviewed and negative Respiratory: reports: Reviewed and negative GI: reports: Reviewed and negative : reports: Reviewed and negative Skin: reports: Reviewed and negative Musculoskeletal: reports: Reviewed and negative Neurologic: reports: Focal weakness, Confused, Head injury (earlier today (see HPI)). denies: Generalized weakness, Numbness, Headache PD PAST MEDICAL HISTORY - Past Medical History Past Medical History: Yes Cardiovascular: Hypertension, High cholesterol, Atrial fibrillation Neuro: CVA - Past Surgical History Past Surgical History: No - Present Medications Home Medications: Ambulatory Orders Medication Instructions Recorded Confirmed Calcium Carb, Citrate/Vit D3 1 tab ORAL DAILY 01/21/15 09/28/17 [Calcium + D3 ER Tablet] Nitroglycerin 0.4 mg SL Q5M PRN 01/21/15 09/28/17 Rivaroxaban [Xarelto] 20 mg PO QDDINNER 01/21/15 09/28/17 Hydrochlorothiazide 12.5 mg PO DAILY #7 tablet 09/27/17 09/28/17 Simvastatin [Zocor] 80 mg PO QPM #20 tablet 09/27/17 09/28/17 - Allergies Allergies/Adverse Reactions: Allergies Allergy/AdvReac Type Severity Reaction Status Date / Time JORDANA Inhibitors Allergy Edema Verified 09/28/17 21:16 ARB-Angiotensin Receptor Allergy Edema Verified 09/28/17 21:16 Antagonist - Living Situation Living Situation: reports: With family Living Arrangement: reports: At home - Social History Does the pt smoke?: No PD ED PE NORMAL - Vitals Vital signs reviewed: Yes - General General: Alert and oriented X 3, No acute distress, Well developed/nourished - HEENT HEENT: Atraumatic, PERRL, EOMI - Neck Neck: Supple, no meningeal sign, No bony TTP - Cardiac Cardiac: RRR, No murmur - Respiratory Respiratory: No respiratory distress, Clear bilaterally - Abdomen Abdomen: Soft, Non tender - Derm Derm: Normal color, Warm and dry - Neuro Neuro: Alert and oriented X 3, microbiology lab assistant 2-12 intact, No motor deficit, No sensory deficit, Normal speech Eye Opening: Spontaneous Motor: Obeys Commands Verbal: Oriented GCS Score: 15 NIHSS - Level of Consciousness Level of consciousness: (0) Alert, Keenly responsive LOC Questions: (0) Answers both Q's correct LOC Commands: (0) Performs both correctly - Gaze Best Gaze: (0) Normal - Visual Visual: (0) No loss - Facial Palsy Facial Palsy: (0) Normal, symmetrical movement - Motor Arms (both separate) Motor Arm (right): (0) No drift Motor Arm (left): (0) No drift - Motor Legs (both separate) Motor Leg (right): (1) Drift Motor Leg (left): (0) No drift - Limb Ataxia Limb Ataxia: (0) Absent - Sensory Sensory: (0) Normal - Best Language Best Language: (1) [id number] (difficulty naming some of the pictures and limited in description of scene) - Dysarthria Dysarthria: (0) Normal - Extinction and Inattention (formally neg Extinction and inattention: (0) No abnormality - Total Score/Results Total Score/Result: 2 Results - Vitals Vitals: Vital Signs - 24 hr 09/28/17 09/28/17 09/28/17 21:03 21:19 21:40 Temperature 36.3 C L Heart Rate 77 72 83 Respiratory 23 20 16 Rate Blood Pressure 147/91 H 168/91 H 150/84 H O2 Saturation 97 96 99 Oxygen O2 Source Room air - EKG (time done) No standard instances Rate: Rate (enter#) (73) Rhythm: NSR [place]: LAD Intervals: Normal [place] QRS: Normal Ischemia: Normal ST segments, Q waves (III, aVF) Other comments: Other comments (PVCs) - Labs Labs: Laboratory Tests 09/28/17 09/28/17 09/28/17 21:19 21:19 21:19 WBC 11.0 H RBC 4.64 L Hgb 14.2 Hct 43.4 MCV 93.5 MCH 30.7 MCHC 32.8 RDW 15.3 H Plt Count 215 MPV 8.1 Neut # (Auto) 7.7 H Lymph # (Auto) 1.9 [place] # (Auto) 1.1 H Eos # (Auto) 0.2 Baso # (Auto) 0.1 Absolute Nucleated RBC 0.00 Nucleated RBC % 0.0 PT 14.7 H INR 1.3 H APTT 30.0 Sodium 137 Potassium 3.9 Chloride 104 Carbon Dioxide 27 Anion Gap 6.0 BUN 22 H Creatinine 0.8 Estimated GFR (MDRD) 92 Glucose 113 H Calcium 9.2 Troponin I 09/28/17 21:19 WBC RBC Hgb Hct MCV MCH MCHC RDW Plt Count MPV Neut # (Auto) Lymph # (Auto) [place] # (Auto) Eos # (Auto) Baso # (Auto) Absolute Nucleated RBC Nucleated RBC % PT INR APTT Sodium Potassium Chloride Carbon Dioxide Anion Gap BUN Creatinine Estimated GFR (MDRD) Glucose Calcium Troponin I < 0.04 - Rads (name of study) CT head Radiology: Prelim report reviewed, See rad report PD MEDICAL DECISION MAKING - ED course Complexity details: reviewed old records, reviewed results, re-evaluated patient , considered differential, d/w patient, d/w family, d/w fitness sales consultant (D/W Dr. Drummond (neurology at [facility] [place]); he recommends against giving thrombolytics ( considering that he is taking xarelto, that the infarct has been evolving over past 2 days, and his age), and holding xarelto x 1 week due to concern for this evolving CVA to transform to hemorrhage) - Sepsis Event Vital Signs: Vital Signs - 24 hr 09/28/17 09/28/17 09/28/17 21:03 21:19 21:40 Temperature 36.3 C L Heart Rate 77 72 83 Respiratory 23 20 16 Rate Blood Pressure 147/91 H 168/91 H 150/84 H O2 Saturation 97 96 99 Oxygen O2 Source Room air Departure - Departure Disposition: 66 [facility] DC/Xfer Clinical Impression: Cerebrovascular accident (CVA) Qualifiers: CVA mechanism: unspecified Qualified Code(s): I63.9 - Cerebral infarction, unspecified Condition: Stable Discharge Date/Time: 09/28/17 23:26
[2017-09-28 21:23] LABS: BASOPHILS # (AUTO) 0.1 10^3/uL (0.0-0.1); BASOPHILS % (AUTO) 0.6 %; EOSINOPHILS # (AUTO) 0.2 10^3/uL (0.0-0.7); EOSINOPHILS % (AUTO) 1.7 %; HGB - HEMOGLOBIN 14.2 g/dL (14.0-18.0); LYMPHOCYTES # (AUTO) 1.9 10^3/uL (1.5-3.5); LYMPHOCYTES % (AUTO) 17.5 %; MEAN CORPUSCULAR HEMOGLOBIN 30.7 pg (27.0-31.0); MEAN CORPUSCULAR HGB CONC 32.8 g/dL (32.0-36.0); MEAN CORPUSCULAR VOLUME 93.5 fL (80.0-94.0); MEAN PLATELET VOLUME 8.1 fL (7.4-11.4); MONOCYTES # (AUTO) 1.1 10^3/uL (0.0-1.0); MONOCYTES % (AUTO) 10.2 %; NEUTROPHILS # (AUTO) 7.7 10^3/uL (1.5-6.6); PLT - PLATELET COUNT 215 10^3/uL (130-450); RED BLOOD COUNT 4.64 10^6/uL (4.70-6.10); RED CELL DISTRIBUTION WIDTH 15.3 % (12.0-15.0)
[2017-09-28 21:29] LABS: INR 1.3 (0.8-1.2); PT - PROTHROMBIN TIME 14.7 secs (9.9-12.6)
--- NOTE | 2017-09-28 21:32 | CT Report ---
Procedure Date: 09/28/2017 Accession Number: [id number] / [id number] Procedure: CT - Head W/O Stroke Protocol CPT Code: FULL RESULT: EXAM: CT HEAD EXAM DATE: 09/28/2017 09:10 PM. CLINICAL HISTORY: Right sided weakness. Stroke protocol. COMPARISON: 09/28/2017 at 1255 hrs.. TECHNIQUE: Multiaxial CT images were obtained from the foramen magnum to the vertex. Reformats: Sagittal and coronal. IV contrast: None. In accordance with CT protocol optimization, one or more of the following dose reduction techniques were utilized for this exam: automated exposure control, adjustment of mA and/or KV based on patient size, or use of iterative reconstructive technique. FINDINGS: Parenchyma: No intraparenchymal hemorrhage. No evidence of mass or midline shift. Green[place]-white differentiation is distinct. Diffuse chronic microangiopathic white matter changes are evident. Focal asymmetric hypodensity within the left basal ganglia extending into the left laboy radiata which appears new compared with the CT 09/26/2017 and appears slightly more discrete and hypodense compared with the exam earlier today and corresponds with the MR finding on 09/27/2017 and is consistent with an evolving infarct. No evidence of new acute infarct. Extraaxial Spaces: Normal for age. No subdural or epidural collections identified. Ventricles: The ventricles and cortical sulci are mildly enlarged, consistent with age-related tissue loss. Sinuses and orbits: Imaged paranasal sinuses, orbits, and mastoids show no significant abnormality. Bones: No evidence of fracture or calvarial defect. Other: None. IMPRESSION: 1. Findings consistent with evolving infarct involving the left basal ganglia and laboy radiata. 2. No intracranial hemorrhage or additional acute infarcts demonstrated. 3. Age-related cerebral volume loss and diffuse chronic microangiopathic white matter changes redemonstrated. RADIA The above findings were discussed with Prosper Bae by Dr. Rafi Schaeffer at 21:28 hrs on 09/28/17.
[2017-09-28 21:41] LABS: CALCIUM 9.2 mg/dL (8.5-10.3); CREATININE 0.8 mg/dL (0.6-1.2)
[2017-09-28] MEDS ORDERED: SODIUM CHLORIDE 0.9% 500 ML IV STA (21:44)
[2017-09-28] MEDS ORDERED: SODIUM CHLORIDE FLUSH 0.9% 10 ML SYRINGE IVP PRN (22:00)
[2017-09-28] MEDS ORDERED: oxyCODONE 5 MG TABLET PO PRN (22:00)
[2017-09-28] MEDS ORDERED: ZOLPIDEM 5 MG TABLET PO PRN (22:00)
[2017-09-28] MEDS ORDERED: PROCHLORPERAZINE 10 MG/2 ML VIAL IVP PRN (22:00)
[2017-09-28] MEDS ORDERED: ONDANSETRON 4 MG/2 ML VIAL IVP PRN (22:00)
--- NOTE | 2017-09-28 22:06 | HISTORY & PHYSICAL EXAMINATION ---
Chief Complaint - Chief Complaint Chief Complaint: Right-sided weakness History of Present Illness - Admitted From Admitted From:: Emergency department - History Obtained From Records Reviewed: Yes History obtained from: Patient Exam Limitations: None - History of Present Illness HPI Comment/Other: Patient is an 86-year-old gentleman with a past medical history significant for hypertension, hyperlipidemia, atrial fibrillation on Xarelto, coronary disease status post coronary artery stent, congestive heart failure, obstructive sleep apnea on CPAP, prostate cancer, BPH, cataract surgery and previous hernia surgeries who presented to the emergency department with a chief complaint of right sided weakness. The patient was just recently discharged from [facility] after a hospitalization for symptomatic bradycardia and was found to have a left basal ganglia infarct on MRI as well as bilateral carotid artery stenosis of 50-69%. The patient appears to have been discharged in stable condition and was to follow-up with his primary care physician on Saturday. The patient states he was doing well upon returning home however this morning when he went outside he fell onto his right side. He states that he felt weak on the one side and fell. The patient's family called paramedics who came to the scene and found that the patient was too weak to get up therefore they brought him to the emergency department. In the emergency department the patient did undergo a CT of his head which showed no evidence of acute intracranial abnormality. The patient was assessed in the emergency department and was able to ambulate with a walker and did not appear to have any lasting focal deficits therefore he was discharged home. The patient's family states that upon returning home at 7 pm the patient began showing evidence of right sided weakness. They state that he was dragging his foot when he was walking in the home and his right arm appeared to be floppy. They state that he sat down for dinner but appeared to be distant and barely ate any of his food. They stated that he was having trouble lifting the fork from the plate to his mouth. They also noticed that he started to have garbled speech. At this point given that he had increasing right sided weakness they decided to bring him to the emergency department. The patient denies any headaches, blurred vision, runny nose, sore throat, nasal congestion, difficulty swallowing, chest pain, shortness of air, cough, orthopnea, PND, increased lower extremity swelling, palpitations, abdominal pain , nausea, vomiting, diarrhea, constipation, increased urinary urgency, urinary frequency, dysuria, joint swelling, joint pain, muscle aches, back pain, neck stiffness, changes in his appetite, recent unintentional weight loss, skin rash , hair loss, polyuria, polydipsia, or any night sweats. On presentation to the emergency department the patient was afebrile and slightly hypertensive but otherwise vital signs were within normal limits. On examination the patient did appear to have some drift of his right lower extremity. The patient's lab work showed a mild leukocytosis of 11.0 but was otherwise within normal limits. The patient's troponin was less than 0.04 and his UA was negative. The patient did undergo another CT of his head which showed an evolving infarct involving the left basal ganglia and laboy radiata. There was no intracranial hemorrhage or additional acute infarcts demonstrated. The emergency room physician spoke with the neurologist medical transcription radiology at [facility] Dr. Drummond who stated that TPA was contraindicated given that the patient was on Xarelto, the patient's age and due to the likely infarct being at least 16 hours ago. The neurologist did recommend that the patient be hospitalized and given IV fluids as he stated some strokes respond to volume. He also asked that we stop Xarelto for at least 1 week. He suggested an evaluation from physical therapy and possible placement if needed. He did not recommend any further imaging at this time. The patient was admitted to the hospital for acute stroke. 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 His father of lung cancer in his 60's. His only sister is alive and well with heart disease. 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 He lives independently with his . He enjoys golfing. He denies tobacco, alcohol or illicit drug use. - Substance History Use: Uses substance without health or social issues: NONE - POLST Patient has POLST: No POLST Status: DNR Meds/Allgy - Home Medications Home Medications: Ambulatory Orders Medication Instructions Recorded Confirmed Calcium Carb, Citrate/Vit D3 1 tab ORAL DAILY 01/21/15 09/28/17 [Calcium + D3 ER Tablet] Nitroglycerin 0.4 mg SL Q5M PRN 01/21/15 09/28/17 Rivaroxaban [Xarelto] 20 mg PO QDDINNER 01/21/15 09/28/17 Hydrochlorothiazide 12.5 mg PO DAILY #7 tablet 09/27/17 09/28/17 Simvastatin [Zocor] 80 mg PO QPM #20 tablet 09/27/17 09/28/17 - Allergies Allergies/Adverse Reactions: Allergies Allergy/AdvReac Type Severity Reaction Status Date / Time JORDANA Inhibitors Allergy Edema Verified 09/28/17 21:16 ARB-Angiotensin Receptor Allergy Edema Verified 09/28/17 21:16 Antagonist Review of Systems - Other Findings Other Findings: A comprehensive review of systems was performed the pertinent positives and negatives are stated above in the HPI and the remainder of the review of systems is negative. Exam - Vital Signs Reviewed Vital Signs: Yes Vital Signs: Vital Signs x48h Temp Pulse Resp BP Pulse Ox 09/28/17 21:40 83 16 150/84 H 99 09/28/17 21:19 72 20 168/91 H 96 09/28/17 21:03 36.3 C L 77 23 147/91 H 97 - Physical Exam General Appearance: positive: No acute distress, Alert Eyes Bilateral: positive: Normal inspection, PERRL, EOMI, No lid inflammation, Conjunctivae nml, No scleral icterus ENT: positive: ENT inspection nml, Pharynx nml, Dry mucous membranes. negative : Purulent nasal drainage, Pharyngeal erythema, Oral lesions Neck: positive: Nml inspection, Thyroid nml, No JVD, Trachea midline. negative : Thyromegaly, Lymphadenopathy (R), Lymphadenopathy (L), Stiff neck, Carotid bruit, Tracheal deviation Respiratory: positive: Chest non-tender, No respiratory distress, Breath sounds nml. negative: Wheezes, Rales, Rhonchi Cardiovascular: positive: Regular rate & rhythm, No murmur, No gallop Peripheral Pulses: positive: 2+ Abdomen: positive: Non-tender, No organomegaly, Nml bowel sounds, No distention Back: positive: Nml inspection. negative: CVA tenderness (R), CVA tenderness (L ) Skin: positive: Color nml, No rash, Warm, Dry Extremities: positive: Non-tender, Full ROM, Nml appearance Neurologic/Psychiatric: positive: Oriented x3, CN's nml (2-12), Sensation nml, Mood/affect nml, Weakness (Right upper extremity greater than right lower extremity but definite right sided weakness) Conclusion/Plan - Problem List (1) Infarction of left basal ganglia Conclusion/Plan: The patient presented with right-sided weakness after recent hospitalization where patient was found to have a left basal ganglia infarct on MRI. The patient underwent CT of the head which showed an evolving infarct in the left basal ganglia. The emergency room physician spoke with the neurologist medical transcription radiology at [facility] Dr. Drummond who stated that TPA was contraindicated given that the patient was on Xarelto, the patient's age and due to the likely infarct being at least 16 hours ago. The neurologist did recommend that the patient be hospitalized and given IV fluids as he stated some strokes respond to volume. He also asked that we stop Xarelto for at least 1 week. He suggested an evaluation from physical therapy and possible placement if needed. He did not recommend any further imaging at this time. Echo, MRI, carotid doppler done on previous hospitalization 2 days ago. Plan: Aspirin Lipitor Tele Neurochecks PT eval IVFs Permissive HTN (2) Hypertension Conclusion/Plan: We will hold patient's home medications in the setting of a subacute stroke. We will allow for permissive hypertension. Patient will be given IV fluids. We will monitor patient's blood pressure. Qualifiers: Hypertension type: essential hypertension Qualified Code(s): I10 - Essential (primary) hypertension (3) Atrial fibrillation Conclusion/Plan: Patient has a history of chronic atrial fibrillation and is on Xarelto. Currently the patient's rate is controlled. On most recent hospitalization the patient had symptomatically bradycardia and his Coreg was held at discharge. Patient has an appointment with cardiology on Saturday to reassess if Coreg needs to be restarted or if he needs a pacemaker. Plan: Continue to hold Coreg Hold Xarelto per recommendations of neurology for at least 1 week bus monitor Qualifiers: Atrial fibrillation type: unspecified Qualified Code(s): I48.91 - Unspecified atrial fibrillation (4) Hyperlipidemia Conclusion/Plan: Patient had lipid profile done 2 days ago which showed an LDL of 72. Given the patient's subacute stroke with continued symptoms the patient will be placed on Lipitor 80 mg daily. Qualifiers: Hyperlipidemia type: unspecified Qualified Code(s): E78.5 - Hyperlipidemia , unspecified (5) CHF (congestive heart failure), NYHA class I Conclusion/Plan: The patient has a history of congestive heart failure and echocardiogram done on 09/26/2017 shows an ejection fraction of 45-50%. The patient currently is not on optimal treatment for systolic heart failure. His Coreg was held due to symptomatic bradycardia but he is not on any lisinopril or bicarb due to side effects. Patient does not have any symptoms or limitations in his physical activity due to his CHF. We will need to be careful with giving IV fluids and monitor closely for development of hypoxia or shortness of breath. Qualifiers: Congestive heart failure type: systolic Congestive heart failure chronicity : chronic Qualified Code(s): I50.22 - Chronic systolic (congestive) heart failure (6) MAUREEN on CPAP Conclusion/Plan: Patient is a history of obstructive sleep apnea on CPAP. We will allow patient to use his home CPAP at night. - Lab Results Lab results reviewed: Yes Fish Bones: 09/28/17 21:19 09/28/17 21:19 Other Lab Results: Laboratory Results WBC 11.0 x10^3/uL (4.8-10.8) H 09/28/17 21:19 RBC 4.64 10^6/uL (4.70-6.10) L 09/28/17 21:19 Hgb 14.2 g/dL (14.0-18.0) 09/28/17 21:19 Hct 43.4 % (42.0-52.0) 09/28/17 21:19 MCV 93.5 fL (80.0-94.0) 09/28/17 21: MCH 30.7 pg (27.0-31.0) 09/28/17 21:19 MCHC 32.8 g/dL (32.0-36.0) 09/28/17 21:19 RDW 15.3 % (12.0-15.0) H 09/28/17 21:19 Plt Count 215 10^3/uL (130-450) 09/28/17 21:19 MPV 8.1 fL (7.4-11.4) 09/28/17 21:19 Neut # (Auto) 7.7 10^3/uL (1.5-6.6) H 09/28/17 21:19 Lymph # (Auto) 1.9 10^3/uL (1.5-3.5) 09/28/17 21:19 [place] # (Auto) 1.1 10^3/uL (0.0-1.0) H 09/28/17 21:19 Eos # (Auto) 0.2 10^3/uL (0.0-0.7) 09/28/17 21:19 Baso # (Auto) 0.1 10^3/uL (0.0-0.1) 09/28/17 21:19 Absolute Nucleated RBC 0.00 x10^3/uL 09/28/17 21:19 Nucleated RBC % 0.0 /100WBC 09/28/17 21:19 PT 14.7 secs (9.9-12.6) H 09/28/17 21:19 INR 1.3 (0.8-1.2) H 09/28/17 21:19 APTT 30.0 secs (24.9-33.3) 09/28/17 21:19 Sodium 137 mmol/L (135-145) 09/28/17 21:19 Potassium 3.9 mmol/L (3.5-5.0) 09/28/17 21:19 Chloride 104 mmol/L (101-111) 09/28/17 21:19 Carbon Dioxide 27 mmol/L (21-32) 09/28/17 21:19 Anion Gap 6.0 (6-13) 09/28/17 21:19 BUN 22 mg/dL (6-20) H 09/28/17 21:19 Creatinine 0.8 mg/dL (0.6-1.2) 09/28/17 21:19 Estimated GFR (MDRD) 92 (>89) 09/28/17 21:19 Glucose 113 mg/dL (70-100) H 09/28/17 21:19 Calcium 9.2 mg/dL (8.5-10.3) 09/28/17 21:19 Troponin I < 0.04 ng/mL (<0.49) 09/28/17 21:19 - Diagnostic Imaging Results Diagnostic Imaging Results: positive: Final report reviewed Diagnostic Imaging Results Comments: CT head Impression: 1. Findings consistent with evolving infarct involving the left basal ganglia and laboy radiata. 2. No intracranial hemorrhage or additional acute infarcts demonstrated. 3. Age-related cerebral volume loss and diffuse chronic microangiopathic white matter changes redemonstrated. - EKG Results EKG Interpreted Independently: Yes EKG Findings: No ST elevations or ischemic changes noted Core Measures - Anticipated LOS I expect patient to be DC'd or transferred within 96 hours.: Yes - DVT/VTE - Prophylaxis VTE/DVT Device ordered at admit?: Yes
[2017-09-28 22:25] LABS: BILIRUBIN,URINE NEGATIVE (NEGATIVE); GLUCOSE, URINE (UA) NEGATIVE (NEGATIVE); KETONES,URINE (UA) NEGATIVE (NEGATIVE); LEUKOCYTE ESTERASE, URINE NEGATIVE (NEGATIVE); NITRITE,URINE NEGATIVE (NEGATIVE); OCCULT BLOOD,URINE NEGATIVE (NEGATIVE); PROTEIN,URINE NEGATIVE (NEGATIVE); UROBILINOGEN,URINE 0.2 (NORMAL) E.U./dL (NORMAL)
[2017-09-28 22:27] LABS: CLARITY,URINE CLEAR (CLEAR)
[2017-09-29] MEDS: SODIUM CHLORIDE FLUSH 0.9% 10 ML SYRINGE IVP SCH ×3 (00:34→17:35)
[2017-09-29] MEDS: SODIUM CHLORIDE 0.9% 1,000 ML IV SCH ×2 (00:34→10:11)
[2017-09-29 05:06] LABS: BASOPHILS % (AUTO) 0.5 %; EOSINOPHILS # (AUTO) 0.2 10^3/uL (0.0-0.7); EOSINOPHILS % (AUTO) 2.1 %; HGB - HEMOGLOBIN 14.1 g/dL (14.0-18.0); LYMPHOCYTES # (AUTO) 2.3 10^3/uL (1.5-3.5); LYMPHOCYTES % (AUTO) 23.2 %; MEAN CORPUSCULAR HEMOGLOBIN 30.8 pg (27.0-31.0); MEAN CORPUSCULAR HGB CONC 32.5 g/dL (32.0-36.0); MEAN CORPUSCULAR VOLUME 94.7 fL (80.0-94.0); MEAN PLATELET VOLUME 8.3 fL (7.4-11.4); MONOCYTES # (AUTO) 1.1 10^3/uL (0.0-1.0); MONOCYTES % (AUTO) 11.2 %; NEUTROPHILS # (AUTO) 6.3 10^3/uL (1.5-6.6); PLT - PLATELET COUNT 203 10^3/uL (130-450); RED BLOOD COUNT 4.59 10^6/uL (4.70-6.10); RED CELL DISTRIBUTION WIDTH 15.5 % (12.0-15.0)
[2017-09-29 05:07] LABS: INR 1.2 (0.8-1.2); PT - PROTHROMBIN TIME 13.9 secs (9.9-12.6)
[2017-09-29 05:17] LABS: ALBUMIN 3.5 g/dL (3.2-5.5); BILIRUBIN,TOTAL 1.3 mg/dL (0.2-1.0); CALCIUM 8.9 mg/dL (8.5-10.3); CREATININE 0.8 mg/dL (0.6-1.2)
[2017-09-29] MEDS: POLYETHYLENE GLYCOL 3350 17 GM PACKET PO SCH (07:30)
[2017-09-29] MEDS: FAMOTIDINE 20 MG TABLET PO SCH (08:03)
[2017-09-29] MEDS: ASPIRIN 325 MG TABLET PO SCH (08:03)
[2017-09-29] MEDS ORDERED: cloNIDine 0.1 MG TABLET PO PRN (14:37)
--- NOTE | 2017-09-29 14:52 | PROVIDER PROGRESS NOTE ---
Subjective - Prog Note Date Prog Note Date: 09/29/17 - Subjective Pt reports feeling: Improved Subjective: pt report his weakness on right side seems much better. No fever, chill, CP, SOB. Current Medications - Current Medications Current Medications: Active Medications Acetaminophen (Tylenol) 650 mg PO Q4HR PRN PRN Reason: Pain 1 to 4 Aspirin (Artemio) 325 mg PO DAILYWM [facility] Last Admin: 09/29/17 08:03 Dose: 325 mg Atorvastatin Calcium (Lipitor) 80 mg PO QPM [facility] Clonidine HCl (Catapres) 0.1 mg PO BID PRN PRN Reason: Hypertensive Emergency Famotidine (Pepcid) 20 mg PO DAILY [facility] Last Admin: 09/29/17 08:03 Dose: 20 mg Sodium Chloride (Normal Saline 0.9%) 1,000 mls @ 100 mls/hr IV .Q10H [facility] Last Admin: 09/29/17 10:11 Dose: 100 mls/hr Ondansetron HCl (Zofran Inj) 4 mg IVP Q6HR PRN PRN Reason: Nausea / Vomiting Oxycodone HCl (Roxicodone) 5 mg PO Q4HR PRN PRN Reason: Pain 5 to 7 Polyethylene Glycol (Miralax) 17 gm PO DAILY [facility] Last Admin: 09/29/17 07:30 Dose: Not Given Prochlorperazine Edisylate (Compazine Inj) 10 mg IVP Q6HR PRN PRN Reason: Nausea / Vomiting Sodium Chloride (Normal Saline Flush 0.9%) 10 ml IVP PRN PRN PRN Reason: NEEDED PER PROVIDER ORDERS Sodium Chloride (Normal Saline Flush 0.9%) 10 ml IVP 0100,0900,1700 [facility] Last Admin: 09/29/17 07:31 Dose: Not Given Zolpidem Tartrate (Ambien) 5 mg PO QPM PRN PRN Reason: Insomnia Calcium Carb, Citrate/Vit D3 [Calcium + D3 ER Tablet] 1 tab ORAL DAILY 01/21/15 Nitroglycerin 0.4 mg SL Q5M PRN 01/21/15 Rivaroxaban [Xarelto] 20 mg PO QDDINNER 01/21/15 Objective - Vital Signs/Intake & Output Reviewed Vital Signs: Yes Vital Signs: Vital Signs x48h Temp Pulse Pulse Resp BP BP BP 09/29/17 14:00 36.1 C L 82 16 181/77 H 09/29/17 11:40 70 193/78 H 09/29/17 07:45 36.1 C L 68 20 151/94 H Pulse Ox 09/29/17 14:00 97 09/29/17 11:40 09/29/17 07:45 96 Intake & Output: Intake & Output 09/26/17 09/27/17 09/28/17 09/29/17 23:59 23:59 23:59 23:59 Intake Total 500 1561.667 Output Total 150 50 Balance 350 1511.667 - Objective General Appearance: positive: No acute distress, Alert. negative: Lethargic Eyes Bilateral: positive: Normal inspection, PERRL, No lid inflammation, Conjunctivae nml ENT: positive: ENT inspection nml, Pharynx nml, No signs of dehydration. negative: Purulent nasal drainage, Pharyngeal erythema, Oral lesions, Dry mucous membranes Neck: positive: Nml inspection, Thyroid nml, No JVD, Trachea midline. negative : Thyromegaly, Lymphadenopathy (R), Lymphadenopathy (L), Stiff neck, Carotid bruit, Swelling/bruising, Tracheal deviation Respiratory: positive: Chest non-tender, No respiratory distress, Breath sounds nml. negative: Wheezes, Rales, Rhonchi Cardiovascular: positive: Regular rate & rhythm, No murmur, No gallop. negative : Irregularly irregular, Extrasystoles, Tachycardia, Bradycardia, JVD present, Systolic murmur, Diastolic murmur Peripheral Pulses: 2+ Radial (R), 2+ Radial (L), 2+ Dorsalis pedis (R), 2+ Dorsalis pedis (L) Abdomen: positive: Non-tender, No organomegaly, Nml bowel sounds, No distention. negative: Tenderness, Guarding, Rebound Back: positive: Nml inspection. negative: CVA tenderness (R), CVA tenderness (L ) Skin: positive: Color nml, No rash, Warm, Dry. negative: Cyanosis, Diaphoresis , Pallor Extremities: positive: Non-tender, Full ROM, Nml appearance. negative: Calf tenderness, Joint swelling, Nahed's sign/cords Neurologic/Psychiatric: positive: Oriented x3, Sensation nml, Mood/affect nml, Weakness, Slurred/abnml speech. negative: Sensory loss, Facial droop, Depressed mood/affect - Lab Results Fish Bones: 09/29/17 04:30 09/29/17 04:30 Other Labs: Lab Results x24hrs 09/29/17 09/29/17 09/29/17 Range/Units 04:30 04:30 04:30 WBC 10.0 (4.8-10.8) x10^3/uL RBC 4.59 L (4.70-6.10) 10^6/uL Hgb 14.1 (14.0-18.0) g/dL Hct 43.5 (42.0-52.0) % MCV 94.7 H (80.0-94.0) fL MCH 30.8 (27.0-31.0) pg MCHC 32.5 (32.0-36.0) g/dL RDW 15.5 H (12.0-15.0) % Plt Count 203 (130-450) 10^3/uL MPV 8.3 (7.4-11.4) fL Neut # (Auto) 6.3 (1.5-6.6) 10^3/uL Lymph # (Auto) 2.3 (1.5-3.5) 10^3/uL [place] # (Auto) 1.1 H (0.0-1.0) 10^3/uL Eos # (Auto) 0.2 (0.0-0.7) 10^3/uL Baso # (Auto) 0.0 (0.0-0.1) 10^3/uL Absolute Nucleated RBC 0.00 x10^3/uL Nucleated RBC % 0.0 /100WBC PT 13.9 H (9.9-12.6) secs INR 1.2 (0.8-1.2) Sodium 138 (135-145) mmol/L Potassium 3.8 (3.5-5.0) mmol/L Chloride 105 (101-111) mmol/L Carbon Dioxide 26 (21-32) mmol/L Anion Gap 7.0 (6-13) BUN 21 H (6-20) mg/dL Creatinine 0.8 (0.6-1.2) mg/dL Estimated GFR (MDRD) 92 (>89) Glucose 102 H (70-100) mg/dL Calcium 8.9 (8.5-10.3) mg/dL Total Bilirubin 1.3 H (0.2-1.0) mg/dL AST 24 (10-42) IU/L ALT 16 (10-60) IU/L Alkaline Phosphatase 48 (42-121) IU/L Total Protein 7.0 (6.7-8.2) g/dL Albumin 3.5 (3.2-5.5) g/dL Globulin 3.5 (2.1-4.2) g/dL Albumin/Globulin Ratio 1.0 (1.0-2.2) Urine Color Urine Clarity (CLEAR) Urine pH (5.0-7.5) PH Ur Specific [place] (1.002-1.030) Urine Protein (NEGATIVE) mg/dL Urine Glucose (UA) (NEGATIVE) mg/dL Urine Ketones (NEGATIVE) mg/dL Urine Occult Blood (NEGATIVE) Urine Nitrite (NEGATIVE) Urine Bilirubin (NEGATIVE) Urine Urobilinogen (NORMAL) E.U./dL Ur Leukocyte Esterase (NEGATIVE) Ur Microscopic Review Urine Culture Comments 09/28/17 Range/Units 22:05 WBC (4.8-10.8) x10^3/uL RBC (4.70-6.10) 10^6/uL Hgb (14.0-18.0) g/dL Hct (42.0-52.0) % MCV (80.0-94.0) fL MCH (27.0-31.0) pg MCHC (32.0-36.0) g/dL RDW (12.0-15.0) % Plt Count (130-450) 10^3/uL MPV (7.4-11.4) fL Neut # (Auto) (1.5-6.6) 10^3/uL Lymph # (Auto) (1.5-3.5) 10^3/uL [place] # (Auto) (0.0-1.0) 10^3/uL Eos # (Auto) (0.0-0.7) 10^3/uL Baso # (Auto) (0.0-0.1) 10^3/uL Absolute Nucleated RBC x10^3/uL Nucleated RBC % /100WBC PT (9.9-12.6) secs INR (0.8-1.2) Sodium (135-145) mmol/L Potassium (3.5-5.0) mmol/L Chloride (101-111) mmol/L Carbon Dioxide (21-32) mmol/L Anion Gap (6-13) BUN (6-20) mg/dL Creatinine (0.6-1.2) mg/dL Estimated GFR (MDRD) (>89) Glucose (70-100) mg/dL Calcium (8.5-10.3) mg/dL Total Bilirubin (0.2-1.0) mg/dL AST (10-42) IU/L ALT (10-60) IU/L Alkaline Phosphatase (42-121) IU/L Total Protein (6.7-8.2) g/dL Albumin (3.2-5.5) g/dL Globulin (2.1-4.2) g/dL Albumin/Globulin Ratio (1.0-2.2) Urine Color YELLOW Urine Clarity CLEAR (CLEAR) Urine pH 7.0 (5.0-7.5) PH Ur Specific [place] 1.010 (1.002-1.030) Urine Protein NEGATIVE (NEGATIVE) mg/dL Urine Glucose (UA) NEGATIVE (NEGATIVE) mg/dL Urine Ketones NEGATIVE (NEGATIVE) mg/dL Urine Occult Blood NEGATIVE (NEGATIVE) Urine Nitrite NEGATIVE (NEGATIVE) Urine Bilirubin NEGATIVE (NEGATIVE) Urine Urobilinogen 0.2 (NORMAL) (NORMAL) E.U./dL Ur Leukocyte Esterase NEGATIVE (NEGATIVE) Ur Microscopic Review NOT INDICATED Urine Culture Comments NOT INDICATED ABX Reporting Has patient been on IV antibiotics over the past 48 hours?: No Assessment/Plan - Problem List (1) Infarction of left basal ganglia Impression: Conclusion/Plan: 09/29 weakness on right side seems improved. continue PT/OT continue tele, vital continue Aspirin, Lipitor, neurochecks, and permissive HTN, Clonidine PRN The patient presented with right-sided weakness after recent hospitalization where patient was found to have a left basal ganglia infarct on MRI. The patient underwent CT of the head which showed an evolving infarct in the left basal ganglia. The emergency room physician spoke with the neurologist sock ironer at [facility] Dr. Drummond who stated that TPA was contraindicated given that the patient was on Xarelto, the patient's age and due to the likely infarct being at least 16 hours ago. The neurologist did recommend that the patient be hospitalized and given IV fluids as he stated some strokes respond to volume. He also asked that we stop Xarelto for at least 1 week. He suggested an evaluation from physical therapy and possible placement if needed. He did not recommend any further imaging at this time. Echo, MRI, carotid doppler done on previous hospitalization 2 days ago. Plan: Aspirin Lipitor Tele Neurochecks PT eval IVFs Permissive HTN (2) Hypertension Conclusion/Plan: HTN permissive, PRN Clonidine We will hold patient's home medications in the setting of a subacute stroke. We will allow for permissive hypertension. Patient will be given IV fluids. We will monitor patient's blood pressure. (3) Atrial fibrillation Conclusion/Plan: 09/29 HR is stable, Continue to hold Coreg. pt has hx of significant bradycardia. 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 Currently the patient's rate is controlled. On most recent hospitalization the patient had symptomatically bradycardia and his Coreg was held at discharge. Patient has an appointment with cardiology on Saturday to reassess if Coreg needs to be restarted or if he needs a pacemaker. Plan: Continue to hold Coreg Hold Xarelto per recommendations of neurology for at least 1 week voucher clerk (4) Hyperlipidemia Conclusion/Plan: Patient had lipid profile done 2 days ago which showed an LDL of 72. Given the patient's subacute stroke with continued symptoms the patient will be placed on Lipitor 80 mg daily. (5) CHF (congestive heart failure), NYHA class I Conclusion/Plan: The patient has a history of congestive heart failure and echocardiogram done on 09/26/2017 shows an ejection fraction of 45-50%. The patient currently is not on optimal treatment for systolic heart failure. His Coreg was held due to symptomatic bradycardia but he is not on any lisinopril or bicarb due to side effects. Patient does not have any symptoms or limitations in his physical activity due to his CHF. We will need to be careful with giving IV fluids and monitor closely for development of hypoxia or shortness of breath. (6) MAUREEN on CPAP Conclusion/Plan: Patient is a history of obstructive sleep apnea on CPAP. We will allow patient to use his home CPAP at night.
[2017-09-29] MEDS ORDERED: SODIUM CHLORIDE 0.9% 1,000 ML IV SCH (15:00)
[2017-09-29] MEDS: ATORVASTATIN 40 MG TABLET PO SCH (20:04)
--- NOTE | 2017-09-29 21:52 | XRAY Report ---
Procedure Date: 09/29/2017 Accession Number: [id number] / [id number] Procedure: XR - Chest 1 View X-Ray CPT Code: 47737 FULL RESULT: EXAM: CHEST RADIOGRAPHY EXAM DATE: 09/29/2017 09:31 PM. CLINICAL HISTORY: Altered mental status. COMPARISON: 01/04/2014. TECHNIQUE: 1 view. FINDINGS: Lungs/Pleura: No focal opacities evident. Mild vascular/interstitial prominence without overt edema. No pleural effusion. No pneumothorax. Mediastinum: The heart is mildly enlarged. Aortic arch calcifications. Other: None. IMPRESSION: Cardiomegaly and mild vascular congestion. RADIA
[2017-09-30] MEDS: SODIUM CHLORIDE FLUSH 0.9% 10 ML SYRINGE IVP SCH ×3 (00:12→20:23)
[2017-09-30 06:10] LABS: BASOPHILS % (AUTO) 0.2 %; EOSINOPHILS # (AUTO) 0.3 10^3/uL (0.0-0.7); EOSINOPHILS % (AUTO) 2.2 %; HGB - HEMOGLOBIN 13.7 g/dL (14.0-18.0); LYMPHOCYTES # (AUTO) 1.9 10^3/uL (1.5-3.5); LYMPHOCYTES % (AUTO) 16.9 %; MEAN CORPUSCULAR HEMOGLOBIN 30.7 pg (27.0-31.0); MEAN CORPUSCULAR HGB CONC 32.7 g/dL (32.0-36.0); MEAN CORPUSCULAR VOLUME 94.1 fL (80.0-94.0); MEAN PLATELET VOLUME 8.3 fL (7.4-11.4); MONOCYTES # (AUTO) 1.3 10^3/uL (0.0-1.0); MONOCYTES % (AUTO) 11.3 %; NEUTROPHILS # (AUTO) 7.9 10^3/uL (1.5-6.6); NEUTROPHILS % (AUTO) 69.4 %; PLT - PLATELET COUNT 198 10^3/uL (130-450); RED BLOOD COUNT 4.46 10^6/uL (4.70-6.10); RED CELL DISTRIBUTION WIDTH 15.5 % (12.0-15.0); WHITE BLOOD COUNT 11.4 x10^3/uL (4.8-10.8)
[2017-09-30 06:22] LABS: ALBUMIN 3.4 g/dL (3.2-5.5); ALBUMIN/GLOBULIN RATIO 1.1 (1.0-2.2); BILIRUBIN,TOTAL 1.3 mg/dL (0.2-1.0); CALCIUM 8.8 mg/dL (8.5-10.3); CREATININE 0.9 mg/dL (0.6-1.2); TOTAL PROTEIN 6.4 g/dL (6.7-8.2)
[2017-09-30] MEDS: ASPIRIN 325 MG TABLET PO SCH (09:51)
[2017-09-30] MEDS: FAMOTIDINE 20 MG TABLET PO SCH (09:51)
[2017-09-30] MEDS: POLYETHYLENE GLYCOL 3350 17 GM PACKET PO SCH (09:51)
--- NOTE | 2017-09-30 12:33 | PROVIDER PROGRESS NOTE ---
Subjective - Prog Note Date Prog Note Date: 09/30/17 - Subjective Pt reports feeling: Improved Subjective: pt walked with me with walker. He slowly walked with me about 6 feet, no problem. But pt presented some balance issue when he took left turn. It is different from me to see him walk by himself on last admission. He walked fast and no balance issue when he made a turn. No fever, chill, cough, CP, SOB Current Medications - Current Medications Current Medications: Active Medications Acetaminophen (Tylenol) 650 mg PO Q4HR PRN PRN Reason: Pain 1 to 4 Aspirin (Artemio) 325 mg PO DAILYWM [facility] Last Admin: 09/30/17 09:51 Dose: 325 mg Atorvastatin Calcium (Lipitor) 80 mg PO QPM [facility] Last Admin: 09/29/17 20:04 Dose: 80 mg Clonidine HCl (Catapres) 0.1 mg PO BID PRN PRN Reason: Hypertensive Emergency Famotidine (Pepcid) 20 mg PO DAILY [facility] Last Admin: 09/30/17 09:51 Dose: 20 mg Ondansetron HCl (Zofran Inj) 4 mg IVP Q6HR PRN PRN Reason: Nausea / Vomiting Oxycodone HCl (Roxicodone) 5 mg PO Q4HR PRN PRN Reason: Pain 5 to 7 Polyethylene Glycol (Miralax) 17 gm PO DAILY [facility] Last Admin: 09/30/17 09:51 Dose: Not Given Prochlorperazine Edisylate (Compazine Inj) 10 mg IVP Q6HR PRN PRN Reason: Nausea / Vomiting Sodium Chloride (Normal Saline Flush 0.9%) 10 ml IVP PRN PRN PRN Reason: NEEDED PER PROVIDER ORDERS Sodium Chloride (Normal Saline Flush 0.9%) 10 ml IVP 0100,0900,1700 [facility] Last Admin: 09/30/17 09:51 Dose: 10 ml Zolpidem Tartrate (Ambien) 5 mg PO QPM PRN PRN Reason: Insomnia Calcium Carb, Citrate/Vit D3 [Calcium + D3 ER Tablet] 1 tab ORAL DAILY 01/21/15 Nitroglycerin 0.4 mg SL Q5M PRN 01/21/15 Rivaroxaban [Xarelto] 20 mg PO QDDINNER 01/21/15 Objective - Vital Signs/Intake & Output Reviewed Vital Signs: Yes Vital Signs: Vital Signs x48h Temp Pulse Resp BP Pulse Ox 09/30/17 09:00 36.9 C 70 16 164/76 H 96 09/30/17 04:53 37.0 C 70 16 168/66 H 97 Intake & Output: Intake & Output 09/27/17 09/28/17 09/29/17 09/30/17 23:59 23:59 23:59 23:59 Intake Total 500 3561.667 260 Output Total 150 50 Balance 350 3511.667 260 - Objective General Appearance: positive: No acute distress, Alert. negative: Lethargic Eyes Bilateral: positive: Normal inspection, PERRL, No lid inflammation, Conjunctivae nml ENT: positive: ENT inspection nml, Pharynx nml, No signs of dehydration. negative: Purulent nasal drainage, Pharyngeal erythema, Oral lesions Neck: positive: Nml inspection, Thyroid nml, No JVD, Trachea midline. negative : Thyromegaly, Lymphadenopathy (R), Lymphadenopathy (L), Stiff neck, Carotid bruit, Swelling/bruising, Tracheal deviation Respiratory: positive: Chest non-tender, No respiratory distress, Breath sounds nml. negative: Wheezes, Rales, Rhonchi Cardiovascular: positive: Regular rate & rhythm, No murmur, No gallop. negative : Irregularly irregular, Extrasystoles, Tachycardia, Bradycardia, JVD present, Systolic murmur, Diastolic murmur Peripheral Pulses: 2+ Radial (R), 2+ Radial (L), 2+ Dorsalis pedis (R), 2+ Dorsalis pedis (L) Abdomen: positive: Non-tender, No organomegaly, Nml bowel sounds, No distention. negative: Tenderness, Guarding, Rebound Back: positive: Nml inspection. negative: CVA tenderness (R), CVA tenderness (L ) Skin: positive: Color nml, No rash, Warm, Dry. negative: Cyanosis, Diaphoresis , Pallor Extremities: positive: Non-tender, Nml appearance. negative: Calf tenderness, Joint swelling, Nahed's sign/cords Neurologic/Psychiatric: positive: Oriented x3, Sensation nml, Mood/affect nml, Weakness, Slurred/abnml speech. negative: Sensory loss, Facial droop, Depressed mood/affect - Lab Results Fish Bones: 09/30/17 05:38 09/30/17 05:38 Other Labs: Lab Results x24hrs 09/30/17 09/30/17 Range/Units 05:38 05:38 WBC 11.4 H (4.8-10.8) x10^3/uL RBC 4.46 L (4.70-6.10) 10^6/uL Hgb 13.7 L (14.0-18.0) g/dL Hct 41.9 L (42.0-52.0) % MCV 94.1 H (80.0-94.0) fL MCH 30.7 (27.0-31.0) pg MCHC 32.7 (32.0-36.0) g/dL RDW 15.5 H (12.0-15.0) % Plt Count 198 (130-450) 10^3/uL MPV 8.3 (7.4-11.4) fL Neut # (Auto) 7.9 H (1.5-6.6) 10^3/uL Lymph # (Auto) 1.9 (1.5-3.5) 10^3/uL [place] # (Auto) 1.3 H (0.0-1.0) 10^3/uL Eos # (Auto) 0.3 (0.0-0.7) 10^3/uL Baso # (Auto) 0.0 (0.0-0.1) 10^3/uL Absolute Nucleated RBC 0.01 x10^3/uL Nucleated RBC % 0.0 /100WBC Sodium 139 (135-145) mmol/L Potassium 3.6 (3.5-5.0) mmol/L Chloride 105 (101-111) mmol/L Carbon Dioxide 26 (21-32) mmol/L Anion Gap 8.0 (6-13) BUN 14 (6-20) mg/dL Creatinine 0.9 (0.6-1.2) mg/dL Estimated GFR (MDRD) 80 L (>89) Glucose 103 H (70-100) mg/dL Calcium 8.8 (8.5-10.3) mg/dL Total Bilirubin 1.3 H (0.2-1.0) mg/dL AST 21 (10-42) IU/L ALT 14 (10-60) IU/L Alkaline Phosphatase 46 (42-121) IU/L Total Protein 6.4 L (6.7-8.2) g/dL Albumin 3.4 (3.2-5.5) g/dL Globulin 3.0 (2.1-4.2) g/dL Albumin/Globulin Ratio 1.1 (1.0-2.2) ABX Reporting Has patient been on IV antibiotics over the past 48 hours?: No Assessment/Plan - Problem List (1) Infarction of left basal ganglia Impression: Conclusion/Plan: 09/30, order ST, pt's daughter report pt has some issue for swallowing, but she insist pt should have regular diet continue PT/OT continue tele, vital continue Aspirin, Lipitor, neurochecks, and permissive HTN, Clonidine PRN 09/29 weakness on right side seems improved. continue PT/OT continue tele, vital continue Aspirin, Lipitor, neurochecks, and permissive HTN, Clonidine PRN The patient presented with right-sided weakness after recent hospitalization where patient was found to have a left basal ganglia infarct on MRI. The patient underwent CT of the head which showed an evolving infarct in the left basal ganglia. The emergency room physician spoke with the neurologist station installation supervisor at [facility] Dr. Drummond who stated that TPA was contraindicated given that the patient was on Xarelto, the patient's age and due to the likely infarct being at least 16 hours ago. The neurologist did recommend that the patient be hospitalized and given IV fluids as he stated some strokes respond to volume. He also asked that we stop Xarelto for at least 1 week. He suggested an evaluation from physical therapy and possible placement if needed. He did not recommend any further imaging at this time. Echo, MRI, carotid doppler done on previous hospitalization 2 days ago. Plan: Aspirin Lipitor Tele Neurochecks PT eval IVFs Permissive HTN (2) Hypertension Conclusion/Plan: HTN permissive, PRN Clonidine We will hold patient's home medications in the setting of a subacute stroke. We will allow for permissive hypertension. Patient will be given IV fluids. We will monitor patient's blood pressure. (3) Atrial fibrillation Conclusion/Plan: 09/30 HR is stable, around at 70, continue to hold Coreg hold Xarelto tele and vital monitor 09/29 HR is stable, Continue to hold Coreg. pt has hx of significant bradycardia. Hold Xarelto per recommendations of neurology for at least 1 week front desk monitor Patient has a history of chronic atrial fibrillation and is on Xarelto. Currently the patient's rate is controlled. On most recent hospitalization the patient had symptomatically bradycardia and his Coreg was held at discharge. Patient has an appointment with cardiology on Saturday to reassess if Coreg needs to be restarted or if he needs a pacemaker. Plan: Continue to hold Coreg Hold Xarelto per recommendations of neurology for at least 1 week front desk monitor (4) Hyperlipidemia Conclusion/Plan: Patient had lipid profile done 2 days ago which showed an LDL of 72. Given the patient's subacute stroke with continued symptoms the patient will be placed on Lipitor 80 mg daily. (5) CHF (congestive heart failure), NYHA class I Conclusion/Plan: The patient has a history of congestive heart failure and echocardiogram done on 09/26/2017 shows an ejection fraction of 45-50%. The patient currently is not on optimal treatment for systolic heart failure. His Coreg was held due to symptomatic bradycardia but he is not on any lisinopril or bicarb due to side effects. Patient does not have any symptoms or limitations in his physical activity due to his CHF. We will need to be careful with giving IV fluids and monitor closely for development of hypoxia or shortness of breath. (6) MAUREEN on CPAP Conclusion/Plan: Patient is a history of obstructive sleep apnea on CPAP. We will allow patient to use his home CPAP at night.
[2017-09-30] MEDS: ACETAMINOPHEN 325 MG TABLET PO PRN (18:27)
[2017-09-30] MEDS: ATORVASTATIN 40 MG TABLET PO SCH (20:23)
[2017-10-01] MEDS: SODIUM CHLORIDE FLUSH 0.9% 10 ML SYRINGE IVP SCH ×3 (00:35→20:35)
[2017-10-01 05:23] LABS: BASOPHILS % (AUTO) 0.3 %; EOSINOPHILS # (AUTO) 0.3 10^3/uL (0.0-0.7); EOSINOPHILS % (AUTO) 2.5 %; HGB - HEMOGLOBIN 13.7 g/dL (14.0-18.0); LYMPHOCYTES # (AUTO) 1.7 10^3/uL (1.5-3.5); LYMPHOCYTES % (AUTO) 14.3 %; MEAN CORPUSCULAR HGB CONC 32.7 g/dL (32.0-36.0); MEAN CORPUSCULAR VOLUME 94.5 fL (80.0-94.0); MEAN PLATELET VOLUME 8.1 fL (7.4-11.4); MONOCYTES # (AUTO) 1.6 10^3/uL (0.0-1.0); MONOCYTES % (AUTO) 13.5 %; NEUTROPHILS # (AUTO) 8.2 10^3/uL (1.5-6.6); NEUTROPHILS % (AUTO) 69.4 %; PLT - PLATELET COUNT 190 10^3/uL (130-450); RED BLOOD COUNT 4.44 10^6/uL (4.70-6.10); RED CELL DISTRIBUTION WIDTH 15.5 % (12.0-15.0); WHITE BLOOD COUNT 11.9 x10^3/uL (4.8-10.8)
[2017-10-01 05:41] LABS: ALBUMIN 3.3 g/dL (3.2-5.5); BILIRUBIN,TOTAL 1.5 mg/dL (0.2-1.0); CALCIUM 8.8 mg/dL (8.5-10.3); CREATININE 0.9 mg/dL (0.6-1.2); TOTAL PROTEIN 6.7 g/dL (6.7-8.2)
[2017-10-01] MEDS: ASPIRIN 325 MG TABLET PO SCH (10:16)
[2017-10-01] MEDS: FAMOTIDINE 20 MG TABLET PO SCH (10:17)
[2017-10-01] MEDS: POLYETHYLENE GLYCOL 3350 17 GM PACKET PO SCH (10:17)
--- NOTE | 2017-10-01 13:03 | XRAY Report ---
Procedure Date: 10/01/2017 Accession Number: [id number] / [id number] Procedure: XR - Chest 1 View X-Ray CPT Code: 59959 FULL RESULT: EXAM: Chest 1 View X-Ray DATE: 10/01/2017 12:56 PM CLINICAL HISTORY: cough, SOB COMPARISON: 09/29/2017. TECHNIQUE: Single view of the chest. FINDINGS: Lung volumes are low which exacerbates basilar pulmonary markings and apparent cardiomegaly also increased by AP portable technique. There is no focal consolidation or sizable pleural effusion or pneumothorax. The mediastinal contour is stable. IMPRESSION: Decreased lung volumes, otherwise stable radiograph. RADIA
--- NOTE | 2017-10-01 14:26 | PROVIDER PROGRESS NOTE ---
Subjective - Prog Note Date Prog Note Date: 10/01/17 - Subjective Pt reports feeling: Improved Subjective: pt present mild cough but no fever, chill, SOB. also pt's WBC has slight elevated WBC, order CXR. pt denies CP, SOB. Current Medications - Current Medications Current Medications: Active Medications Acetaminophen (Tylenol) 650 mg PO Q4HR PRN PRN Reason: Pain 1 to 4 Last Admin: 09/30/17 18:27 Dose: 650 mg Aspirin (Artemio) 325 mg PO DAILYWM [facility] Last Admin: 10/01/17 10:16 Dose: 325 mg Atorvastatin Calcium (Lipitor) 80 mg PO QPM [facility] Last Admin: 09/30/17 20:23 Dose: 80 mg Clonidine HCl (Catapres) 0.1 mg PO BID PRN PRN Reason: Hypertensive Emergency Famotidine (Pepcid) 20 mg PO DAILY [facility] Last Admin: 10/01/17 10:17 Dose: 20 mg Ondansetron HCl (Zofran Inj) 4 mg IVP Q6HR PRN PRN Reason: Nausea / Vomiting Oxycodone HCl (Roxicodone) 5 mg PO Q4HR PRN PRN Reason: Pain 5 to 7 Polyethylene Glycol (Miralax) 17 gm PO DAILY [facility] Last Admin: 10/01/17 10:17 Dose: Not Given Prochlorperazine Edisylate (Compazine Inj) 10 mg IVP Q6HR PRN PRN Reason: Nausea / Vomiting Sodium Chloride (Normal Saline Flush 0.9%) 10 ml IVP PRN PRN PRN Reason: NEEDED PER PROVIDER ORDERS Sodium Chloride (Normal Saline Flush 0.9%) 10 ml IVP 0100,0900,1700 [facility] Last Admin: 10/01/17 10:16 Dose: 10 ml Zolpidem Tartrate (Ambien) 5 mg PO QPM PRN PRN Reason: Insomnia Calcium Carb, Citrate/Vit D3 [Calcium + D3 ER Tablet] 1 tab ORAL DAILY 01/21/15 Nitroglycerin 0.4 mg SL Q5M PRN 01/21/15 Rivaroxaban [Xarelto] 20 mg PO QDDINNER 01/21/15 Objective - Vital Signs/Intake & Output Reviewed Vital Signs: Yes Vital Signs: Vital Signs x48h Temp Pulse Resp BP Pulse Ox 10/01/17 08:13 37.0 C 76 20 151/78 H 93 Intake & Output: Intake & Output 09/28/17 09/29/17 09/30/17 10/01/17 23:59 23:59 23:59 23:59 Intake Total 500 3561.667 940 505 Output Total 150 50 Balance 350 3511.667 940 505 - Objective General Appearance: positive: No acute distress, Alert. negative: Lethargic Eyes Bilateral: positive: Normal inspection, PERRL, No lid inflammation, Conjunctivae nml ENT: positive: ENT inspection nml, Pharynx nml, No signs of dehydration. negative: Purulent nasal drainage, Pharyngeal erythema, Oral lesions Neck: positive: Nml inspection, Thyroid nml, No JVD, Trachea midline. negative : Thyromegaly, Lymphadenopathy (R), Lymphadenopathy (L), Stiff neck, Swelling/ bruising, Tracheal deviation Respiratory: positive: Chest non-tender, No respiratory distress, Breath sounds nml. negative: Wheezes, Rales, Rhonchi Cardiovascular: positive: Regular rate & rhythm, No murmur, No gallop. negative : Irregularly irregular, Extrasystoles, Tachycardia, Bradycardia, Systolic murmur, Diastolic murmur Peripheral Pulses: 2+ Radial (R), 2+ Radial (L), 2+ Dorsalis pedis (R), 2+ Dorsalis pedis (L) Abdomen: positive: Non-tender, No organomegaly, Nml bowel sounds, No distention. negative: Tenderness, Guarding, Rebound Back: positive: Nml inspection. negative: CVA tenderness (R), CVA tenderness (L ) Skin: positive: Color nml, No rash, Warm, Dry. negative: Cyanosis, Diaphoresis , Pallor Extremities: positive: Non-tender, Nml appearance. negative: Calf tenderness, Joint swelling, Nahed's sign/cords Neurologic/Psychiatric: positive: Oriented x3, Mood/affect nml, Weakness, Slurred/abnml speech. negative: Sensory loss, Facial droop, Depressed mood/ affect - Lab Results Fish Bones: 10/01/17 05:03 10/01/17 05:03 Other Labs: Lab Results x24hrs 10/01/17 10/01/17 Range/Units 05:03 05:03 WBC 11.9 H (4.8-10.8) x10^3/uL RBC 4.44 L (4.70-6.10) 10^6/uL Hgb 13.7 L (14.0-18.0) g/dL Hct 42.0 (42.0-52.0) % MCV 94.5 H (80.0-94.0) fL MCH 31.0 (27.0-31.0) pg MCHC 32.7 (32.0-36.0) g/dL RDW 15.5 H (12.0-15.0) % Plt Count 190 (130-450) 10^3/uL MPV 8.1 (7.4-11.4) fL Neut # (Auto) 8.2 H (1.5-6.6) 10^3/uL Lymph # (Auto) 1.7 (1.5-3.5) 10^3/uL [place] # (Auto) 1.6 H (0.0-1.0) 10^3/uL Eos # (Auto) 0.3 (0.0-0.7) 10^3/uL Baso # (Auto) 0.0 (0.0-0.1) 10^3/uL Absolute Nucleated RBC 0.00 x10^3/uL Nucleated RBC % 0.0 /100WBC Sodium 138 (135-145) mmol/L Potassium 3.6 (3.5-5.0) mmol/L Chloride 104 (101-111) mmol/L Carbon Dioxide 26 (21-32) mmol/L Anion Gap 8.0 (6-13) BUN 18 (6-20) mg/dL Creatinine 0.9 (0.6-1.2) mg/dL Estimated GFR (MDRD) 80 L (>89) Glucose 104 H (70-100) mg/dL Calcium 8.8 (8.5-10.3) mg/dL Total Bilirubin 1.5 H (0.2-1.0) mg/dL AST 17 (10-42) IU/L ALT 13 (10-60) IU/L Alkaline Phosphatase 42 (42-121) IU/L Total Protein 6.7 (6.7-8.2) g/dL Albumin 3.3 (3.2-5.5) g/dL Globulin 3.4 (2.1-4.2) g/dL Albumin/Globulin Ratio 1.0 (1.0-2.2) ABX Reporting Has patient been on IV antibiotics over the past 48 hours?: No Assessment/Plan - Problem List (1) Infarction of left basal ganglia Impression: 10/01, ST is still pending. continue PT/OT, per PT/OT recommend, plan d/c to SNF continue tele, vital continue Aspirin, Lipitor, neurochecks, and permissive HTN, Clonidine PRN 09/30, order ST, pt's daughter report pt has some issue for swallowing, but she insist pt should have regular diet continue PT/OT continue tele, vital continue Aspirin, Lipitor, neurochecks, and permissive HTN, Clonidine PRN 09/29 weakness on right side seems improved. continue PT/OT continue tele, vital continue Aspirin, Lipitor, neurochecks, and permissive HTN, Clonidine PRN The patient presented with right-sided weakness after recent hospitalization where patient was found to have a left basal ganglia infarct on MRI. The patient underwent CT of the head which showed an evolving infarct in the left basal ganglia. The emergency room physician spoke with the neurologist naturalization examiner at [facility] Dr. Drummond who stated that TPA was contraindicated given that the patient was on Xarelto, the patient's age and due to the likely infarct being at least 16 hours ago. The neurologist did recommend that the patient be hospitalized and given IV fluids as he stated some strokes respond to volume. He also asked that we stop Xarelto for at least 1 week. He suggested an evaluation from physical therapy and possible placement if needed. He did not recommend any further imaging at this time. Echo, MRI, carotid doppler done on previous hospitalization 2 days ago. Plan: Aspirin Lipitor Tele Neurochecks PT eval IVFs Permissive HTN (2) Hypertension Conclusion/Plan: HTN permissive, PRN Clonidine We will hold patient's home medications in the setting of a subacute stroke. We will allow for permissive hypertension. Patient will be given IV fluids. We will monitor patient's blood pressure. (3) Atrial fibrillation Conclusion/Plan: 09/30 HR is stable, around at 70, continue to hold Coreg hold Xarelto tele and vital monitor 09/29 HR is stable, Continue to hold Coreg. pt has hx of significant bradycardia. Hold Xarelto per recommendations of neurology for at least 1 week rail bender Patient has a history of chronic atrial fibrillation and is on Xarelto. Currently the patient's rate is controlled. On most recent hospitalization the patient had symptomatically bradycardia and his Coreg was held at discharge. Patient has an appointment with cardiology on Saturday to reassess if Coreg needs to be restarted or if he needs a pacemaker. Plan: Continue to hold Coreg Hold Xarelto per recommendations of neurology for at least 1 week rail bender (4) Hyperlipidemia Conclusion/Plan: Patient had lipid profile done 2 days ago which showed an LDL of 72. Given the patient's subacute stroke with continued symptoms the patient will be placed on Lipitor 80 mg daily. (5) CHF (congestive heart failure), NYHA class I Conclusion/Plan: The patient has a history of congestive heart failure and echocardiogram done on 09/26/2017 shows an ejection fraction of 45-50%. The patient currently is not on optimal treatment for systolic heart failure. His Coreg was held due to symptomatic bradycardia but he is not on any lisinopril or bicarb due to side effects. Patient does not have any symptoms or limitations in his physical activity due to his CHF. We will need to be careful with giving IV fluids and monitor closely for development of hypoxia or shortness of breath. (6) MAUREEN on CPAP Conclusion/Plan: Patient is a history of obstructive sleep apnea on CPAP. We will allow patient to use his home CPAP at night. (7) cough, slight elevated WBC 11.9 order CXR, will follow up. Pt has 93% O2 sat on room air, no fever, chill, SOB.
[2017-10-01] MEDS ORDERED: MIN OIL/DIMETHICON/COCONUT OIL 92 GM TUBE TOP PRN (14:57)
[2017-10-01] MEDS: ATORVASTATIN 40 MG TABLET PO SCH (20:34)
[2017-10-02] MEDS: SODIUM CHLORIDE FLUSH 0.9% 10 ML SYRINGE IVP SCH ×2 (00:11→09:02)
[2017-10-02] MEDS ORDERED: NITROGLYCERIN SL 0.4 MG TABLET SL PRN (07:26)
[2017-10-02 08:13] LABS: BASOPHILS % (AUTO) 0.2 %; EOSINOPHILS # (AUTO) 0.2 10^3/uL (0.0-0.7); EOSINOPHILS % (AUTO) 1.9 %; HGB - HEMOGLOBIN 13.8 g/dL (14.0-18.0); LYMPHOCYTES # (AUTO) 1.6 10^3/uL (1.5-3.5); MEAN CORPUSCULAR HEMOGLOBIN 30.7 pg (27.0-31.0); MEAN CORPUSCULAR HGB CONC 33.2 g/dL (32.0-36.0); MEAN CORPUSCULAR VOLUME 92.4 fL (80.0-94.0); MEAN PLATELET VOLUME 8.3 fL (7.4-11.4); MONOCYTES # (AUTO) 1.7 10^3/uL (0.0-1.0); MONOCYTES % (AUTO) 13.5 %; NEUTROPHILS # (AUTO) 8.8 10^3/uL (1.5-6.6); NEUTROPHILS % (AUTO) 71.4 %; PLT - PLATELET COUNT 204 10^3/uL (130-450); RED BLOOD COUNT 4.51 10^6/uL (4.70-6.10); RED CELL DISTRIBUTION WIDTH 15.5 % (12.0-15.0); WHITE BLOOD COUNT 12.3 x10^3/uL (4.8-10.8)
[2017-10-02 08:23] LABS: ALBUMIN 3.4 g/dL (3.2-5.5); BILIRUBIN,TOTAL 1.1 mg/dL (0.2-1.0); CALCIUM 8.7 mg/dL (8.5-10.3); CREATININE 0.8 mg/dL (0.6-1.2); TOTAL PROTEIN 6.8 g/dL (6.7-8.2)
[2017-10-02 08:28] LABS: RBC MORPHOLOGY (MULTIPLE) 2+ ANISOCYTOSIS (NORMAL)
[2017-10-02] MEDS ORDERED: CHOLECALCIFEROL 1,000 UNIT TABLET PO SCH (09:00)
[2017-10-02] MEDS ORDERED: CALCIUM CITRATE 250 MG TABLET PO SCH (09:00)
[2017-10-02] MEDS: FAMOTIDINE 20 MG TABLET PO SCH (09:02)
[2017-10-02] MEDS: ASPIRIN 325 MG TABLET PO SCH (09:02)
[2017-10-02] MEDS: POLYETHYLENE GLYCOL 3350 17 GM PACKET PO SCH (11:26)
--- NOTE | 2017-10-02 11:34 | Discharge Plan ---
Discharge Plan for SNF / [facility] - DC Plan and Transition Orders Disposition: 03 SNF DC/Xfer Condition: Stable SNF Transition Orders: Admit to: [facility] under the care of Dr Boone Discharge Diagnosis: CVA Medicare Certification: I certify that Post Hospital assisted care is medically necessary on a continuing basis for any of the conditions for which she/he is receiving care during hospitalization. Notify PCP of admission and forward orders to primary provider for signature. Weight on admission and weekly. Call PCP immediately if weight increases by 10 pounds or if patient develops dyspnea, chest pain/tightness or edema. House Bowel Program: yes If no BM after 2 days, nurse may give M.O.M. 30ml PO PRN and /or ducolax Supp 1 DE and /or DAVID 250mg P.O., and/or senna 1-2 tabs PO. On day 3 nurse may give repeat above order until residents constipation is resolved. Immunizations: Annual Influenza Vaccine: yes. (between Nov 02 and June 01.) Unless allergy or already given Two-Step PPD: yes per [facility] [phone] or appropriate documentation of approved exceptions Treatments & Other Orders: PT to maximize functional ability Oxygen Orders: 2 l/m PRN dyspnea Medications: PLEASE REFER TO THE DISCHARGE MEDICATION LIST. Insulin Orders? No Allergies and Adverse Reactions: Allergies Allergy/AdvReac Type Severity Reaction Status Date / Time JORDANA Inhibitors Allergy Edema Verified 09/28/17 21:16 ARB-Angiotensin Receptor Allergy Edema Verified 09/28/17 21:16 Antagonist - Medications New Prescriptions: Atorvastatin [Lipitor] 80 mg PO QPM #30 tablet - Diet Type: No added salt
[2017-10-02 14:03] VITALS: BP 146/73
--- NOTE | 2017-10-02 14:32 | DISCHARGE SUMMARY ---
Discharge Summary Admit Date: 09/28/17 Discharge Date: 10/02/17 Discharging Provider: Alice Gonzales DO Primary Care Provider: Lg Holder Code Status: Do Not Attempt Resuscitation Condition at Discharge: Stable Discharge Disposition: 03 SNF DC/Xfer Discharge Facility Name: [facility] - DIAGNOSES Admission Diagnoses: 1. Infarction of the left basal ganglia 2. Hypertension 3. Atrial fibrillation 4. Hyperlipidemia 5. Congestive heart failure 6. MAUREEN on CPAP Discharge Diagnoses with Status of Each Condition: 1. Infarction of the left basal ganglia 2. Hypertension 3. Atrial fibrillation 4. Hyperlipidemia 5. Congestive heart failure 6. MAUREEN on CPAP - HPI History of Present Illness: Patient is an 86-year-old gentleman with a past medical history significant for hypertension, hyperlipidemia, atrial fibrillation on Xarelto, coronary disease status post coronary artery stent, congestive heart failure, obstructive sleep apnea on CPAP, prostate cancer, BPH, cataract surgery and previous hernia surgeries who presented to the emergency department with a chief complaint of right sided weakness. The patient was just recently discharged from [facility] after a hospitalization for symptomatic bradycardia and was found to have a left basal ganglia infarct on MRI as well as bilateral carotid artery stenosis of 50-69%. The patient appears to have been discharged in stable condition and was to follow-up with his primary care physician on Saturday. The patient states he was doing well upon returning home however this morning when he went outside he fell onto his right side. He states that he felt weak on the one side and fell. The patient's family called paramedics who came to the scene and found that the patient was too weak to get up therefore they brought him to the emergency department. In the emergency department the patient did undergo a CT of his head which showed no evidence of acute intracranial abnormality. The patient was assessed in the emergency department and was able to ambulate with a walker and did not appear to have any lasting focal deficits therefore he was discharged home. The patient's family states that upon returning home at 7 pm the patient began showing evidence of right sided weakness. They state that he was dragging his foot when he was walking in the home and his right arm appeared to be floppy. They state that he sat down for dinner but appeared to be distant and barely ate any of his food. They stated that he was having trouble lifting the fork from the plate to his mouth. They also noticed that he started to have garbled speech. At this point given that he had increasing right sided weakness they decided to bring him to the emergency department. The patient denies any headaches, blurred vision, runny nose, sore throat, nasal congestion, difficulty swallowing, chest pain, shortness of air, cough, orthopnea, PND, increased lower extremity swelling, palpitations, abdominal pain , nausea, vomiting, diarrhea, constipation, increased urinary urgency, urinary frequency, dysuria, joint swelling, joint pain, muscle aches, back pain, neck stiffness, changes in his appetite, recent unintentional weight loss, skin rash , hair loss, polyuria, polydipsia, or any night sweats. On presentation to the emergency department the patient was afebrile and slightly hypertensive but otherwise vital signs were within normal limits. On examination the patient did appear to have some drift of his right lower extremity. The patient's lab work showed a mild leukocytosis of 11.0 but was otherwise within normal limits. The patient's troponin was less than 0.04 and his UA was negative. The patient did undergo another CT of his head which showed an evolving infarct involving the left basal ganglia and laboy radiata. There was no intracranial hemorrhage or additional acute infarcts demonstrated. The emergency room physician spoke with the neurologist utilization management manager at [facility] Dr. Drummond who stated that TPA was contraindicated given that the patient was on Xarelto, the patient's age and due to the likely infarct being at least 16 hours ago. The neurologist did recommend that the patient be hospitalized and given IV fluids as he stated some strokes respond to volume. He also asked that we stop Xarelto for at least 1 week. He suggested an evaluation from physical therapy and possible placement if needed. He did not recommend any further imaging at this time. The patient was admitted to the hospital for acute stroke. - HOSPITAL COURSE Hospital Course: The patient was admitted to the hospital with a diagnosis of CVA. The on-call Neurologist from [facility] in [place] (Dr Drummond) was consulted and felt that because the patient's stroke happened while he was on Xarelto approximately 16 hours prior and his advanced age he was not a candidate for any further treatments and should be managed medically. The neurologist did recommend that the patient be hospitalized and given IV fluids as he stated some strokes respond to volume. He also recommended stopping Xarelto for at least 1 week. He is just an evaluation from physical therapy and possible placement if needed. He did not recommend any further imaging at the time. His deficits began to improve and he stabilized to the point where it was felt he was safe to be discharged [facility]. - ALLERGIES Allergies/Adverse Reactions: Allergies Allergy/AdvReac Type Severity Reaction Status Date / Time JORDANA Inhibitors Allergy Edema Verified 09/28/17 21:16 ARB-Angiotensin Receptor Allergy Edema Verified 09/28/17 21:16 Antagonist - MEDICATIONS Home Medications: Ambulatory Orders Medication Instructions Recorded Confirmed Calcium Carb, Citrate/Vit D3 1 tab ORAL DAILY 01/21/15 09/28/17 [Calcium + D3 ER Tablet] Nitroglycerin 0.4 mg SL Q5M PRN 01/21/15 09/28/17 Rivaroxaban [Xarelto] 20 mg PO QDDINNER 01/21/15 09/28/17 Hydrochlorothiazide 12.5 mg PO DAILY #7 tablet 09/27/17 09/28/17 Simvastatin [Zocor] 80 mg PO QPM #20 tablet 09/27/17 09/28/17 Atorvastatin [Lipitor] 80 mg PO QPM #30 tablet 10/02/17 Carvedilol [Carvedilol] 25 mg PO BID 10/02/17 10/02/17 - PHYSICAL EXAM AT DISCHARGE General Appearance: positive: No acute distress, Alert Eyes Bilateral: positive: Normal inspection, PERRL, EOMI, No lid inflammation, Conjunctivae nml, No scleral icterus ENT: positive: ENT inspection nml, Pharynx nml, No signs of dehydration Neck: positive: Nml inspection, Thyroid nml, No JVD, Trachea midline. negative : Thyromegaly Respiratory: positive: Chest non-tender, No respiratory distress, Breath sounds nml. negative: Wheezes, Rales, Rhonchi Cardiovascular: positive: Regular rate & rhythm, No murmur, No gallop Peripheral Pulses: positive: 1+ Abdomen: positive: Non-tender, No organomegaly, Nml bowel sounds, No distention. negative: Guarding, Rebound Back: positive: Nml inspection. negative: CVA tenderness (R), CVA tenderness (L ) Skin: positive: Color nml, No rash, Warm, Dry. negative: Cyanosis Extremities: positive: Non-tender, Nml appearance, No pedal edema. negative: Calf tenderness Neurologic/Psychiatric: positive: Oriented x3, CN's nml (2-12), Sensation nml, Mood/affect nml, Other - LABS Result Diagrams: 10/02/17 07:50 10/02/17 07:50 - DIAGNOSTIC IMAGING Diagnostic Imaging Results: Final report reviewed Diagnostic Imaging Results Comments: EXAM: Chest 1 View X-Ray DATE: 10/01/2017 12:56 PM CLINICAL HISTORY: cough, SOB COMPARISON: 09/29/2017. TECHNIQUE: Single view of the chest. FINDINGS: Lung volumes are low which exacerbates basilar pulmonary markings and apparent cardiomegaly also increased by AP portable technique. There is no focal consolidation or sizable pleural effusion or pneumothorax. The mediastinal contour is stable. IMPRESSION: Decreased lung volumes, otherwise stable radiograph. - FOLLOW UP Follow Up: Follow-up with Dr. Holder next week - TIME SPENT Time Spent in Discharge (Minutes): 45
[2017-10-02] MEDS: ACETAMINOPHEN 325 MG TABLET PO PRN (15:29)
== END 2017-10-02 16:02 | DRG 64 ==
LOC: EDUNIT# → EDBD → ED 21:01 → MS3 22:00
PROVIDERS: ADMIT Internal Medicine; ATTEND Nurse Practitioner Gerontology
DX: I63.9 Cerebral infarction, unspecified (principal); I63.233 Cerebral infarction due to unspecified occlusion or stenosis of bilateral carotid arteries; I50.9 Heart failure, unspecified; G47.30 Sleep apnea, unspecified; E78.00 Pure hypercholesterolemia, unspecified; G81.91 Hemiplegia, unspecified affecting right dominant side; I50.22 Chronic systolic (congestive) heart failure; R47.02 Dysphasia; R29.702 NIHSS score 2; R40.2412 Glasgow coma scale score 13-15, at arrival to emergency department; I11.0 Hypertensive heart disease with heart failure; I48.91 Unspecified atrial fibrillation; E78.5 Hyperlipidemia, unspecified; G47.33 Obstructive sleep apnea (adult) (pediatric); I25.10 Atherosclerotic heart disease of native coronary artery without angina pectoris; R05 Cough; D72.829 Elevated white blood cell count, unspecified; N40.1 Benign prostatic hyperplasia with lower urinary tract symptoms; R35.1 Nocturia; Z66 Do not resuscitate; Z79.01 Long term (current) use of anticoagulants; Z95.5 Presence of coronary angioplasty implant and graft; Z85.46 Personal history of malignant neoplasm of prostate; Z91.81 History of falling
CPT/HCPCS: 36415; 70450; 71045; 80048; 80053; 81001; 81003; 83690; 84484; 85025; 85610; 85730; 87086; 93005; 99284; 99285

== ENCOUNTER 2018-06-26 11:38 | Outpatient (CLI) | payer MEDICARE, OTHER ==
[2018-06-26 18:54] LABS: BASOPHILS # (AUTO) 0.1 10^3/uL (0.0-0.1); BASOPHILS % (AUTO) 1.1 %; EOSINOPHILS # (AUTO) 0.1 10^3/uL (0.0-0.7); EOSINOPHILS % (AUTO) 1.4 %; HGB - HEMOGLOBIN 13.6 g/dL (14.0-18.0); LYMPHOCYTES # (AUTO) 1.7 10^3/uL (1.5-3.5); LYMPHOCYTES % (AUTO) 20.4 %; MEAN CORPUSCULAR HEMOGLOBIN 30.8 pg (27.0-31.0); MEAN CORPUSCULAR HGB CONC 32.5 g/dL (32.0-36.0); MEAN CORPUSCULAR VOLUME 94.5 fL (80.0-94.0); MEAN PLATELET VOLUME 9.1 fL (7.4-11.4); MONOCYTES # (AUTO) 0.6 10^3/uL (0.0-1.0); NEUTROPHILS # (AUTO) 5.6 10^3/uL (1.5-6.6); NEUTROPHILS % (AUTO) 69.1 %; PLT - PLATELET COUNT 239 10^3/uL (130-450); RED BLOOD COUNT 4.43 10^6/uL (4.70-6.10); RED CELL DISTRIBUTION WIDTH 15.4 % (12.0-15.0); WHITE BLOOD COUNT 8.1 x10^3/uL (4.8-10.8)
[2018-06-26 19:22] LABS: ALBUMIN 3.8 g/dL (3.2-5.5); ALBUMIN/GLOBULIN RATIO 1.1 (1.0-2.2); ALKALINE PHOSPHATASE 58 IU/L (42-121); ALT ALANINE AMINOTRANSFERASE 15 IU/L (10-60); AST ASPARTATE AMINOTRANSFERASE 22 IU/L (10-42); BUN - BLOOD UREA NITROGEN 20 mg/dL (6-20); CALCIUM 9.6 mg/dL (8.5-10.3); CARBON DIOXIDE - CO2 28 mmol/L (21-32); CHLORIDE 105 mmol/L (101-111); CHOL/HDL RATIO 3.9 (<5.0); CHOLESTEROL 191 mg/dL; CREATININE 1.1 mg/dL (0.6-1.2); GFR - MDRD 64 (>89); GLUCOSE 92 mg/dL (70-100); HDL CHOLESTEROL 49 mg/dL; LDL CHOLESTEROL,CALCULATED 128 mg/dL; LDL/HDL RATIO 2.6 (<3.6); SODIUM 142 mmol/L (135-145); TOTAL PROTEIN 7.2 g/dL (6.7-8.2); VLDL CHOLESTEROL 14 mg/dL
== END 2018-06-26 11:39 | disposition home or self-care (01) ==
LOC: LAB.WCP 11:38
PROVIDERS: ATTEND Family Medicine
DX: I10 Essential (primary) hypertension (principal); E78.5 Hyperlipidemia, unspecified; D64.9 Anemia, unspecified
CPT/HCPCS: 36415; 80053; 80061; 83721; 85025

== ENCOUNTER 2018-07-18 15:00 | Emergency (ER) | payer MEDICARE, OTHER ==
[2018-07-18] MEDS ORDERED: TETANUS/DIPHTHERIA/PERTUSSIS 0.5 ML SYRINGE IM ONE (15:35)
--- NOTE | 2018-07-18 15:37 | ED Physician Documentation ---
PD HPI HEAD INJURY - Stated complaint Stated Complaint: ARM LAC - Chief complaint Chief Complaint: Neuro - History obtained from History obtained from: Patient - History of Present Illness Mechanism of head injury: Fell (Tripped on a treadmill at home at 2:30 PM. He impacted his right orthodox but has no headache or loss of consciousness. He is on anticoagulants. His tetanus is unknown and has a large skin tear over the right forearm and right hand.) Review of Systems Constitutional: reports: Reviewed and negative Cardiac: reports: Reviewed and negative Respiratory: reports: Reviewed and negative PD PAST MEDICAL HISTORY - Past Medical History Cardiovascular: Hypertension, High cholesterol, Atrial fibrillation Respiratory: Sleep apnea, CPAP use Neuro: CVA GI: GERD NUTRITION ASSISTANT: None : Benign prostate hypertrophy, Nocturia HEENT: Chronic vision loss, Chronic hearing loss Psych: None Musculoskeletal: Chronic back pain Derm: None - Past Surgical History Past Surgical History: No General: Bowel surgery, Other Cardiovascular: Coronary stent, Cardiac catheterization, Angioplasty HEENT: Cataracts - Present Medications Home Medications: Ambulatory Orders Medication Instructions Recorded Confirmed Calcium Carb, Citrate/Vit D3 1 tab ORAL DAILY 01/21/15 09/28/17 [Calcium + D3 ER Tablet] Nitroglycerin 0.4 mg SL Q5M PRN 01/21/15 09/28/17 Rivaroxaban [Xarelto] 20 mg PO QDDINNER 01/21/15 09/28/17 Hydrochlorothiazide 12.5 mg PO DAILY #7 tablet 09/27/17 09/28/17 Simvastatin [Zocor] 80 mg PO QPM #20 tablet 09/27/17 09/28/17 Atorvastatin [Lipitor] 80 mg PO QPM #30 tablet 10/02/17 Carvedilol 25 mg PO BID 10/02/17 10/02/17 - Allergies Allergies/Adverse Reactions: Allergies Allergy/AdvReac Type Severity Reaction Status Date / Time JORDANA Inhibitors Allergy Edema Verified 07/18/18 15:12 ARB-Angiotensin Receptor Allergy Edema Verified 07/18/18 15:12 Antagonist - Social History Does the pt smoke?: No Smoking Status: Never smoker Does the pt drink ETOH?: No Does the pt have substance abuse?: No - Immunizations Immunizations are current?: Yes Immunizations: TDAP current <10years - POLST Patient has POLST: No POLST Status: DNR PD ED PE NORMAL - Vitals Vital signs reviewed: Yes - General General: Alert and oriented X 3, No acute distress - HEENT HEENT: PERRL, EOMI - Neck Neck: Supple, no meningeal sign, No bony TTP - Extremities Extremities: Other (There is a long skin tear over the right dorsal forearm measuring about 15 cm and gaping about 3 cm but very shallow, a smaller 3 cm skin tear over the dorsum of the right hand, none of these areas are tender or have limited range of motion.) - Neuro Neuro: Alert and oriented X 3, Normal speech Eye Opening: Spontaneous Motor: Obeys Commands Verbal: Oriented GCS Score: 15 Results - Vitals Vitals: Vital Signs - 24 hr 07/18/18 15:08 Temperature 36.4 C L Heart Rate 92 Respiratory 18 Rate Blood Pressure 161/87 H O2 Saturation 99 Oxygen O2 Source Room air - Rads (name of study) CT Head Radiology: EMP read contemporaneously (Chronic age-related atrophy and infarction of the left basal ganglia and left laboy radiata without acute disease) Procedures - Laceration (location) R forearm/hand Length in cm: 18 Wound type: Flap, Superficial Wound Preparation: Irrigated copiously NS Skin layer closure: Steri strips Other: Tetanus booster given Complexity: Simple Departure - Departure Disposition: 01 Home, Self Care Clinical Impression: Skin tear of right upper extremity, Adequate anticoagulation on anticoagulant therapy Head injury Qualifiers: Encounter type: initial encounter Qualified Code(s): S09.90XA - Unspecified injury of head, initial encounter Condition: Stable Record reviewed to determine appropriate education?: Yes Instructions: ED Head Injury Closed, ED Laceration Ext Sutr Stap Tape Comments: Call your doctor to arrange a follow-up appointment, make the next available appointment. In the interim, return anytime if worse or if new symptoms develop.
--- NOTE | 2018-07-18 16:03 | CT Report ---
Reason: head inj Procedure Date: 07/18/2018 Accession Number: [id number] / [id number] Procedure: CT - HEAD WO CPT Code: FULL RESULT: EXAM: CT HEAD EXAM DATE: 07/18/2018 03:43 PM. CLINICAL HISTORY: 87-year-old male, head injury COMPARISON: CT head 09/28/2017 TECHNIQUE: Multiaxial CT images were obtained from the foramen magnum to the vertex. Reformats: Sagittal and coronal. IV contrast: None. In accordance with CT protocol optimization, one or more of the following dose reduction techniques were utilized for this exam: automated exposure control, adjustment of mA and/or KV based on patient size, or use of iterative reconstructive technique. FINDINGS: Parenchyma: No intraparenchymal hemorrhage. No evidence of mass, midline shift, or CT findings of acute infarction. [place]-white differentiation is distinct. Diffuse chronic microangiopathic white matter changes are evident. Chronic infarction left basal ganglia and left laboy radiata. Extraaxial Spaces: Normal for age. No subdural or epidural collections identified. Ventricles: The ventricles and cortical sulci are enlarged, consistent with age-related tissue loss. Sinuses and orbits: Status post bilateral lens replacement surgery. Imaged paranasal sinuses, orbits, and mastoids show no significant abnormality. Bones: No evidence of fracture or calvarial defect. Other: None. IMPRESSION: Generalized age-related cortical atrophic changes without evidence of acute intracranial abnormality. Chronic infarction left basal ganglia and left laboy radiata. RADIA
[2018-07-18 16:37] VITALS: BP 162/76
== END 2018-07-18 16:37 | disposition home or self-care (01) ==
LOC: ED 15:00
DX: S51.811A Laceration without foreign body of right forearm, initial encounter (principal); S61.411A Laceration without foreign body of right hand, initial encounter; S09.90XA Unspecified injury of head, initial encounter; W31.89XA Contact with other specified machinery, initial encounter; Y93.A1 Activity, exercise machines primarily for cardiorespiratory conditioning; Y92.009 Unspecified place in unspecified non-institutional (private) residence as the place of occurrence of the external cause; Z23 Encounter for immunization; I10 Essential (primary) hypertension; I48.91 Unspecified atrial fibrillation; Z79.01 Long term (current) use of anticoagulants; Z86.73 Personal history of transient ischemic attack (TIA), and cerebral infarction without residual deficits; Z66 Do not resuscitate
CPT/HCPCS: 70450; 90471; 99283

== ENCOUNTER 2018-08-04 08:00 | Outpatient (CLI) | payer MEDICARE, OTHER ==
[2018-08-04 12:59] LABS: CREATININE 1.1 mg/dL (0.6-1.2)
[2018-08-04 13:21] LABS: CALCIUM 9.4 mg/dL (8.5-10.3)
== END 2018-08-04 23:59 | disposition home or self-care (01) ==
LOC: LAB.WCP 08:00
PROVIDERS: ATTEND Family Medicine
DX: I10 Essential (primary) hypertension (principal)
CPT/HCPCS: 36415; 80048

== ENCOUNTER 2019-01-08 12:31 | Outpatient (CLI) | payer MEDICARE, OTHER ==
--- NOTE | 2019-01-09 09:46 | XRAY Report ---
Reason: LUMBAR RADICULOPATHY Procedure Date: 01/08/2019 Accession Number: [id number] / [id number] Procedure: XRN - Lumbar Spine Complete CPT Code: Final Report FULL RESULT: EXAM: LUMBOSACRAL SPINE RADIOGRAPHY EXAM DATE: 01/08/2019 01:07 PM. CLINICAL HISTORY: LUMBAR RADICULOPATHY. COMPARISONS: None. TECHNIQUE: 5 Views. FINDINGS: Alignment: Mild right convex lumbar scoliosis. No spondylolisthesis. Bones: Five nst-gyb-xbuopli lumbar vertebral bodies are present. Osteopenia is evident. No fracture lines are seen. Disks: Severe disk height loss at L2-L3. Moderate disk height loss at other lumbar levels. Facets: Multilevel moderate to severe degenerative facet hypertrophy is noted. Sacroiliac Joints: Unremarkable. Soft Tissues: Normal. The visualized bowel gas pattern is normal. IMPRESSION: 1. Osteopenia without evidence for acute lumbar spine fractures. 2. Mild right convex lumbar scoliosis seen. 3. Multilevel degenerative changes throughout the lumbar spine. RADIA
== END 2019-01-08 12:32 | disposition home or self-care (01) ==
LOC: DI.N 12:31
PROVIDERS: ATTEND Family Medicine
DX: M51.16 Intervertebral disc disorders with radiculopathy, lumbar region (principal); M41.86 Other forms of scoliosis, lumbar region; M85.88 Other specified disorders of bone density and structure, other site
CPT/HCPCS: 72110

== ENCOUNTER 2020-01-22 17:12 | Outpatient (CLI) | payer MEDICARE, OTHER | END 2020-01-22 17:13 | disposition critical access hospital (66) | LOC: EMS 17:12 | PROVIDERS: ATTEND Surgery | DX: I48.91 Unspecified atrial fibrillation (principal); R06.02 Shortness of breath | CPT/HCPCS: A0425; A0427 ==

== ENCOUNTER 2020-01-22 17:57 | Inpatient (IN) | payer MEDICARE, OTHER ==
[2020-01-22] MEDS ORDERED: diltiaZEM INJ 5 MG/ML VIAL IVP STA ×2 (18:09→19:49)
--- NOTE | 2020-01-22 18:09 | ED Physician Documentation ---
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 fib on Xarelto, coronary disease, CHF, sleep apnea, prostate cancer, BPH, cataract surgery has been short of breath. He says it just started today but ambulance report suggest that its been more like 3 days. He denies cough, chest pain, pedal edema, increased salt intake. He was sent from the walk-in clinic for these complaints. He was noted to be pale there. He denies dark or tarry stools. There is some orthopnea. 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 : Benign prostate hypertrophy, Nocturia HEENT: Chronic vision loss, Chronic hearing loss Psych: None Musculoskeletal: Chronic back pain Derm: None - Past Surgical History Past Surgical History: No General: Appendectomy, Bowel surgery, Hiatal hernia repair Cardiovascular: Coronary stent, Cardiac catheterization, Angioplasty HEENT: Cataracts - Present Medications Home Medications: Ambulatory Orders Medication Instructions Recorded Confirmed Calcium Carb, Citrate/Vit D3 1 tab ORAL DAILY 01/21/15 07/31/18 [Calcium + D3 ER Tablet] Nitroglycerin 0.4 mg SL Q5M PRN 01/21/15 07/31/18 Rivaroxaban [Xarelto] 20 mg PO QDDINNER 01/21/15 07/31/18 carvediloL [Carvedilol] 3.125 mg PO BID 10/02/17 07/31/18 Simvastatin [Zocor] 20 mg PO QPM 07/31/18 07/31/18 - Allergies Allergies/Adverse Reactions: Allergies Allergy/AdvReac Type Severity Reaction Status Date / Time OJRDANA Inhibitors Allergy Edema Verified 07/31/18 15:45 ARB-Angiotensin Receptor Allergy Edema Verified 07/31/18 15:45 Antagonist - Social History Does the pt smoke?: No Smoking Status: Former smoker Does the pt drink ETOH?: No Does the pt have substance abuse?: No - Immunizations Immunizations are current?: Yes Immunizations: TDAP current <10years - POLST Patient has POLST: No POLST Status: DNR PD ED PE NORMAL - Vitals Vital signs reviewed: Yes - General General: Alert and oriented X 3, Other (Appears breathless/tachypneic) - HEENT HEENT: PERRL, EOMI - Neck Neck: Supple, no meningeal sign, No bony TTP, No JVD - Cardiac Cardiac: Other (Heart rate is rapid and irregular without murmur) - Respiratory Respiratory: Other (Mild rales at both bases) - Abdomen Abdomen: Non tender - Back Back: No CVA TTP, No spinal TTP - Derm Derm: Normal color, Warm and dry - Extremities Extremities: No edema, No calf tenderness / cord - Neuro Neuro: Alert and oriented X 3, Normal speech Results - Vitals Vitals: Vital Signs - 24 hr 01/22/20 01/22/20 01/22/20 18:00 18:19 18:33 Temperature 35.8 C L Heart Rate 130 H 143 H 141 H Respiratory 20 35 H 29 H Rate Blood Pressure 155/112 H 120/88 H 119/75 O2 Saturation 92 91 L 97 01/22/20 01/22/20 01/22/20 18:47 19:07 19:57 Temperature Heart Rate 152 H 138 H 139 H Respiratory 24 38 H 28 H Rate Blood Pressure 99/70 109/97 H 131/89 H O2 Saturation 100 95 96 Oxygen O2 Source Nasal cannula - EKG (time done) 1759 Rate: Rate (enter#) (154) Rhythm: Atrial fibrillation Ischemia: Q waves (inferior). No: ST elevation c/w ischemia, ST depression Computer interpretation: Agree with computer - Labs Labs: Laboratory Tests 01/22/20 01/22/20 01/22/20 18:12 18:12 18:12 WBC 11.4 H RBC 4.25 L Hgb 13.0 L Hct 40.3 L MCV 94.8 H MCH 30.6 MCHC 32.3 RDW 14.9 Plt Count 271 MPV 10.4 Neut # (Auto) 7.7 H Lymph # (Auto) 2.0 Desha # (Auto) 1.3 H Eos # (Auto) 0.2 Baso # (Auto) 0.1 Absolute Nucleated RBC 0.00 Nucleated RBC % 0.0 PT 29.8 H INR 2.9 H Sodium 138 Potassium 4.1 Chloride 103 Carbon Dioxide 24 Anion Gap 11.0 BUN 34 H Creatinine 1.2 Estimated GFR (MDRD) 57 L Glucose 111 H Calcium 8.9 Total Bilirubin 0.9 AST 28 ALT 23 Alkaline Phosphatase 51 Troponin I High Sens B-Natriuretic Peptide Total Protein 6.6 L Albumin 3.5 Globulin 3.1 Albumin/Globulin Ratio 1.1 Lipase 44 01/22/20 01/22/20 18:12 18:12 WBC RBC Hgb Hct MCV MCH MCHC RDW Plt Count MPV Neut # (Auto) Lymph # (Auto) Desha # (Auto) Eos # (Auto) Baso # (Auto) Absolute Nucleated RBC Nucleated RBC % PT INR Sodium Potassium Chloride Carbon Dioxide Anion Gap BUN Creatinine Estimated GFR (MDRD) Glucose Calcium Total Bilirubin AST ALT Alkaline Phosphatase Troponin I High Sens 17.1 B-Natriuretic Peptide 1226 H Total Protein Albumin Globulin Albumin/Globulin Ratio Lipase PD MEDICAL DECISION MAKING - ED course ED course: 89-year-old gentleman presents with dyspnea, A. fib with RVR and findings of acute pulmonary edema on x-ray. Suspect this is all very acute since he does not appear fluid overloaded too much. His heart rate was difficult to control, he got several divided doses of IV diltiazem, metoprolol and eventually was loaded with digoxin and placed on a diltiazem drip. Dr. Black will admit. Departure - Departure Disposition: 66 [facility] DC/Xfer Clinical Impression: Atrial fibrillation with RVR Pulmonary edema Qualifiers: Chronicity: acute Qualified Code(s): J81.0 - Acute pulmonary edema Condition: Serious
[2020-01-22 18:15] LABS: BASOPHILS # (AUTO) 0.1 10^3/uL (0.0-0.1); BASOPHILS % (AUTO) 0.4 %; EOSINOPHILS # (AUTO) 0.2 10^3/uL (0.0-0.7); EOSINOPHILS % (AUTO) 1.7 %; LYMPHOCYTES % (AUTO) 17.9 %; MEAN CORPUSCULAR HEMOGLOBIN 30.6 pg (27.0-31.0); MEAN CORPUSCULAR HGB CONC 32.3 g/dL (32.0-36.0); MEAN CORPUSCULAR VOLUME 94.8 fL (80.0-94.0); MEAN PLATELET VOLUME 10.4 fL (7.4-11.4); MONOCYTES # (AUTO) 1.3 10^3/uL (0.0-1.0); MONOCYTES % (AUTO) 11.4 %; NEUTROPHILS # (AUTO) 7.7 10^3/uL (1.5-6.6); NEUTROPHILS % (AUTO) 68.1 %; PLT - PLATELET COUNT 271 10^3/uL (130-450); RED BLOOD COUNT 4.25 10^6/uL (4.70-6.10); RED CELL DISTRIBUTION WIDTH 14.9 % (12.0-15.0); WHITE BLOOD COUNT 11.4 x10^3/uL (4.8-10.8)
[2020-01-22 18:20] LABS: INR 2.9 (0.8-1.2); PT - PROTHROMBIN TIME 29.8 secs (9.9-12.6)
[2020-01-22] MEDS ORDERED: METOPROLOL 5 MG/5 ML VIAL IVP STA (18:25)
[2020-01-22 18:28] LABS: ALBUMIN 3.5 g/dL (3.2-5.5); ALBUMIN/GLOBULIN RATIO 1.1 (1.0-2.2); BILIRUBIN,TOTAL 0.9 mg/dL (0.2-1.0); CALCIUM 8.9 mg/dL (8.5-10.3); CREATININE 1.2 mg/dL (0.6-1.2); TOTAL PROTEIN 6.6 g/dL (6.7-8.2)
[2020-01-22] MEDS ORDERED: FUROSEMIDE 40 MG/4 ML VIAL IVP STA (18:38)
[2020-01-22] MEDS ORDERED: DILTIAZEM 125 MG in DEXTROSE 5% 100 ML IV STA (18:54)
[2020-01-22] MEDS ORDERED: DIGOXIN 500 MCG/2 ML AMP IVP STA (18:54)
--- NOTE | 2020-01-22 19:31 | XRAY Report ---
PROCEDURE: Chest 1 View X-Ray INDICATIONS: Chest Pain TECHNIQUE: One view of the chest was acquired. COMPARISON: None FINDINGS: Surgical changes and devices: None. Lungs and pleura: Diffuse bilateral pulmonary edema is seen. Mediastinum: Mediastinal contours appear normal. There is cardiomegaly. The aorta has atheroscleroti c calcifications. Bones and chest wall: No suspicious bony lesions. Overlying soft tissues appear unremarkable. IMPRESSION: Cardiomegaly and pulmonary edema. Reviewed by: Deepak Fernandez on 01/22/2020 7:30 PM [facility] Approved by: Deepak Fernandez on 01/22/2020 7:30 PM [facility] Station ID: [id number]
[2020-01-22] MEDS ORDERED: ACETAMINOPHEN 325 MG TABLET PO PRN (20:09)
--- NOTE | 2020-01-22 20:21 | HISTORY & PHYSICAL EXAMINATION ---
Chief Complaint - Chief Complaint Chief Complaint: Dyspnea History of Present Illness - [facility] History Obtained From Records Reviewed: Yes History obtained from: Patient - History of Present Illness HPI Comment/Other: Patient is an 89-year-old male with medical history significant for hypertension, hyperlipidemia, atrial fibrillation on Xarelto, coronary artery disease status post coronary artery stent, CHF, obstructive sleep apnea on CPAP, prostate cancer, BPH, cataract surgery and previous hernia surgeries who presented to the ED with complaint of dyspnea. He reports that his symptoms started today however his family reported that his symptoms have been going on for the past 2 to 3 days. He denied chest pain, abdominal pain, nausea, vomiting, fever or chills. In the ED he was found to have an irregularly irregular rhythm with a heart rate as high as the 140s. He has crackles on auscultation in the lower lung bases and a 1+ lower extremity edema which is more prominent on the right leg. He was found to have a BNP of 1226. He was given a dose of diltiazem, metoprolol 5 mg IV, and a loading dose of digoxin with no improvement in his heart rate. Consequently he was started on diltiazem drip and presented for admission. 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 His father of lung cancer in his 60's. His only sister is alive and well with heart disease. 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 He lives independently with his . He enjoys golfing. He denies tobacco, alcohol or illicit drug use. - Substance History Use: Uses substance without health or social issues: NONE - POLST Patient has POLST: No POLST Status: DNR Meds/Allgy - Home Medications Home Medications: Ambulatory Orders Medication Instructions Recorded Confirmed Calcium Carb, Citrate/Vit D3 1 tab ORAL DAILY 01/21/15 07/31/18 [Calcium + D3 ER Tablet] Nitroglycerin 0.4 mg SL Q5M PRN 01/21/15 07/31/18 Rivaroxaban [Xarelto] 20 mg PO QDDINNER 01/21/15 07/31/18 carvediloL [Carvedilol] 3.125 mg PO BID 10/02/17 07/31/18 Simvastatin [Zocor] 20 mg PO QPM 07/31/18 07/31/18 - Allergies Allergies/Adverse Reactions: Allergies Allergy/AdvReac Type Severity Reaction Status Date / Time JORDANA Inhibitors Allergy Edema Verified 07/31/18 15:45 ARB-Angiotensin Receptor Allergy Edema Verified 07/31/18 15:45 Antagonist Review of Systems - Constitutional Constitutional: denies: Fever, Chills - Eyes Eyes: denies: Pain, Dipolpia - Ears, Nose & Throat Ears, Nose & Throat: denies: Ear pain - Cardiovascular Cariovascular: reports: Irregular heart rate, Edema. denies: Chest pain, Lightheadedness, Syncope - Respiratory Respiratory: reports: SOB at rest, SOB with exertion. denies: Cough, Sputum production, Wheezing - Gastrointestinal Gastrointestinal: denies: Abdominal pain, Abdominal distention, Constipation, Nausea, Vomiting - Genitourinary Genitourinary: denies: Dysuria, Frequency, Urgency, Hematuria - Musculoskeletal Musculoskeletal: denies: Muscle pain, Back pain, Muscle aches, Stiffness - Integumentary Integumentary: denies: Rash, Pruritis, Lesions, Dryness - Neurological Neurological: denies: General weakness, Focal weakness, Headache Prior Level of Functionality: She gets around using a cane. He is independent of activities of daily living. He lives with his . Exam - Vital Signs Vital Signs: Vital Signs x48h Temp Pulse Resp BP Pulse Ox 01/22/20 20:12 151 H 30 H 125/106 H 100 01/22/20 19:57 139 H 28 H 131/89 H 96 01/22/20 19:07 138 H 38 H 109/97 H 95 01/22/20 18:47 152 H 24 99/70 100 01/22/20 18:33 141 H 29 H 119/75 97 01/22/20 18:19 143 H 35 H 120/88 H 91 L 01/22/20 18:00 35.8 C L 130 H 20 155/112 H 92 - Physical Exam General Appearance: positive: Alert, Mild distress (respiratory distress) Eyes Bilateral: positive: PERRL, EOMI ENT: positive: No signs of dehydration Neck: positive: No JVD, Trachea midline Respiratory: positive: Chest non-tender, Other (crackles in lung bases bilatera lly). negative: No respiratory distress, Breath sounds nml, Wheezes Cardiovascular: positive: No murmur, Irregularly irregular, Tachycardia Abdomen: positive: Non-tender, No organomegaly, Nml bowel sounds, No distention. negative: Guarding, Rebound Back: positive: Nml inspection Skin: positive: Color nml, No rash, Warm, Dry Extremities: positive: Non-tender, Full ROM, Nml appearance, Pedal edema (+1 lower extremity edema) Neurologic/Psychiatric: positive: Oriented x3, Mood/affect nml Conclusion/Plan - Problem List (1) Atrial fibrillation with RVR Conclusion/Plan: Patient was given 2 doses of diltiazem 10 mg IV. He also received a dose of metoprolol 5 mg IV and digoxin 750 mcg IV. The patient's heart rate persisted between 130s to 140s. Consequently he was p laced on diltiazem drip. Will titrate to effect. Patient takes Coreg 3.125 mg twice daily at home. Coreg 6.25 mg once was given tonight. Will resume his regular home dose tomorrow in the morning. 2D echo ordered for Saturday. We will continue patient's Xarelto once verified. (2) CHF (congestive heart failure), NYHA class I Conclusion/Plan: Patient's BMP was 1226. Initial troponin was 17. Patient does not have any chest pain. Patient has crackles in the lung bases. Patient was given Lasix 40 mg IV x1 in the ED. We will continue Lasix 20 mg IV twice daily starting in the morning. We will do a 2D echo on Saturday. Patient is on Coreg 3.125 mg twice daily. Will continue. Qualifiers: Congestive heart failure type: systolic Congestive heart failure chronicity: chronic Qualified Code(s): I50.22 - Chronic systolic (congestive) heart failure (3) Coronary artery disease Conclusion/Plan: On Coreg, simvastatin and Xarelto. (5) Hyperlipidemia Conclusion/Plan: On simvastatin Qualifiers: Hyperlipidemia type: unspecified Qualified Code(s): E78.5 - Hyperlipidemia, unspecified (6) Hypertension Conclusion/Plan: We will continue patient's Coreg. Qualifiers: Hypertension type: essential hypertension Qualified Code(s): I10 - Ess ential (primary) hypertension (7) MAUREEN on CPAP Conclusion/Plan: Will order home CPAP. - Lab Results Fish Bones: 01/22/20 18:12 01/22/20 18:12 Core Measures - Anticipated LOS I expect patient to be DC'd or transferred within 96 hours.: Yes - DVT/VTE - Prophylaxis VTE/DVT Device ordered at admit?: Yes VTE/DVT Prophylaxis med ordered at admit?: Yes
[2020-01-22] MEDS ORDERED: carvediloL 3.125 MG TABLET PO SCH (21:00)
[2020-01-22] MEDS: diltiaZEM INJ 125 MG in DEXTROSE 5% 100 ML IV SCH (21:15)
[2020-01-22] MEDS: SODIUM CHLORIDE FLUSH 0.9% 10 ML SYRINGE IVP SCH (21:46)
[2020-01-22] MEDS ORDERED: SODIUM CHLORIDE 0.9% 250 ML IV PRN (22:13)
[2020-01-22] MEDS: NYSTATIN POWDER 15 GM TOP SCH (22:20)
[2020-01-22] MEDS ORDERED: METOPROLOL 5 MG/5 ML VIAL IVP PRN (22:22)
[2020-01-22] MEDS ORDERED: METOPROLOL 5 MG/5 ML VIAL IVP ONE (23:07)
[2020-01-23] MEDS: diltiaZEM INJ 125 MG in DEXTROSE 5% 100 ML IV SCH ×2 (04:16→12:40)
[2020-01-23 04:22] LABS: BASOPHILS # (AUTO) 0.1 10^3/uL (0.0-0.1); BASOPHILS % (AUTO) 0.4 %; EOSINOPHILS # (AUTO) 0.3 10^3/uL (0.0-0.7); EOSINOPHILS % (AUTO) 2.2 %; LYMPHOCYTES % (AUTO) 16.6 %; MEAN CORPUSCULAR HEMOGLOBIN 30.4 pg (27.0-31.0); MEAN CORPUSCULAR HGB CONC 32.2 g/dL (32.0-36.0); MEAN CORPUSCULAR VOLUME 94.4 fL (80.0-94.0); MEAN PLATELET VOLUME 10.7 fL (7.4-11.4); MONOCYTES # (AUTO) 1.4 10^3/uL (0.0-1.0); MONOCYTES % (AUTO) 11.6 %; NEUTROPHILS # (AUTO) 8.3 10^3/uL (1.5-6.6); NEUTROPHILS % (AUTO) 68.6 %; PLT - PLATELET COUNT 239 10^3/uL (130-450); RED BLOOD COUNT 4.28 10^6/uL (4.70-6.10); RED CELL DISTRIBUTION WIDTH 14.7 % (12.0-15.0); WHITE BLOOD COUNT 12.1 x10^3/uL (4.8-10.8)
[2020-01-23 04:36] LABS: CALCIUM 8.9 mg/dL (8.5-10.3); CREATININE 1.2 mg/dL (0.6-1.2); MAGNESIUM 1.8 mg/dL (1.7-2.8); PHOSPHORUS 3.8 mg/dL (2.5-4.6)
[2020-01-23] MEDS: SODIUM CHLORIDE FLUSH 0.9% 10 ML SYRINGE IVP PRN ×2 (05:16→05:47)
[2020-01-23] MEDS: FUROSEMIDE 20 MG/2 ML VIAL IVP SCH ×2 (05:16→15:20)
[2020-01-23] MEDS: diltiaZEM 30 MG TABLET PO SCH ×2 (06:39→12:00)
[2020-01-23] MEDS ORDERED: POTASSIUM CHLORIDE 20 MEQ TABLET PO ONE (07:00)
[2020-01-23] MEDS: SODIUM CHLORIDE FLUSH 0.9% 10 ML SYRINGE IVP SCH (08:43)
--- NOTE | 2020-01-23 08:54 | PHARMACY PROGRESS NOTE ---
- Best Possible Medication History Admit Date and Time: 01/22/202008 Processed by: Pharmacy Medication History completed: Yes Patient Interview: Completed Secondary Source(s): Pharmacy records, Insurance records (PATIENT INTERVIEWED BY PHARMACY. PATIENT AND SPOUSE ABLE TO CONFIRM HOME MEDICATIONS ) As the person ultimately responsible for medication therapy, providers are able to order a medication from an existing home medication list in [facility] via the "Reconcile Routine" prior to Confirmation of that medication by instructional support services director. Such practice is discouraged except when the physician, in their clinical judgment, deems that a medical need exists for a medication without regard to previous use.
[2020-01-23] MEDS ORDERED: DIGOXIN 500 MCG/2 ML AMP IVP SCH (09:00)
[2020-01-23] MEDS ORDERED: carvediloL 3.125 MG TABLET PO SCH (09:00)
--- NOTE | 2020-01-23 09:26 | XRAY Report ---
PROCEDURE: Chest 1 View X-Ray INDICATIONS: dyspnea TECHNIQUE: One view of the chest was acquired. COMPARISON: 01/22/2020, 10/01/2017 FINDINGS: Habitus Surgical changes and devices: None. Lungs and pleura: Lung volumes are low. Abnormal interstitial prominence is seen throughout, with per ihilar infiltrates. There is a likely small left-sided pleural effusion. No pneumothorax. Mediastinum: Mediastinal contours appear normal. Heart size is moderately enlarged. Calcification is seen of the aortic arch. Bones and chest wall: No suspicious bony lesions. Age-appropriate degenerative changes are seen. O verlying soft tissues appear unremarkable. IMPRESSION: Moderate cardiomegaly, with interstitial prominence and perihilar infiltrates as well as a likely sma ll left pleural effusion. CHF is suspected. There is minimal improvement compared to 01/22/2020. Note: No significant discrepancy from the preliminary report. Reviewed by: Garrett Holm MD on 01/23/2020 8:25 AM [place] Approved by: Garrett Holm MD on 01/23/2020 8:25 AM [facility] Station ID: [id number]
[2020-01-23] MEDS: NYSTATIN POWDER 15 GM TOP SCH (10:00)
[2020-01-23 13:15] LABS: C. PNEUMONIAE- RESP PCR PANEL NOT DETECTED
--- NOTE | 2020-01-23 13:54 | Discharge Plan ---
Discharge Plan Problem Reviewed?: Yes Disposition: 02 Transfer Acute Care Hosp Condition: Serious No Smoking: If you smoke, Please STOP! Call for help. Follow-up with: SEEMA FORD MD [Primary Care Provider] -
--- NOTE | 2020-01-23 13:55 | DISCHARGE SUMMARY ---
Discharge Summary Admit Date: 01/22/20 Discharge Date: 01/23/20 Discharging Provider: Dr Fatemeh Gaxiola Primary Care Provider: Dr Rashid Fernando Code Status: Do Not Attempt Resuscitation Condition at Discharge: Serious Discharge Disposition: 02 Transfer Acute Care Hosp Discharge Facility Name: [facility] History of Present Illness: From the admission H&P of Dr Francesca Black: Patient is an 89-year-old male with medical history significant for hypertension, hyperlipidemia, atrial fibrillation on Xarelto, coronary artery disease status post coronary artery stent, CHF (last known EF is 48%, per the patient), obstructive sleep apnea on CPAP, prostate cancer, BPH, cataract surgery and previous hernia surgeries, who presented to the ED with complaint of dyspnea, orthopnea and leg edema. He reports that his symptoms started today however his family reported that his symptoms have been going on for the past 2 to 3 days. He denied chest pain, abdominal pain, nausea, vomiting, cough, fever or chills. In the ED he was found to have an irregularly irregular rhythm with a heart rate as high as the 150s. He has crackles on auscultation in the lower lung bases and 1-2+ lower extremity edema which is more prominent on the right leg. His EKG showed Afib with RVR, rate 150 with low voltage in the limb leads. He was found to have a BNP of 1226, normal hs-troponin of 17. His CXR showed CHF. He was given a dose of diltiazem IV, metoprolol 5 mg IV, and a loading dose of digoxin with no improvement in his heart rate. Consequently he was started on diltiazem drip and presented for admission to the ICU. - HOSPITAL COURSE Hospital Course: 1) Afib with RVR Patient was admitted to the ICU, started on a Diltiazem drip, which was increased to maximum dose of 15 mgs, then we added metoprolol IV pushes and then Digoxin 750 mcg IV then 250 mcg IV. His RVR was only controlled slightly, to a heart rate of 140-150 despite this management. These meds plus IV Lasix produced hypotension and no other medical management could be added therefore, such as an Amiodarone drip. This Hospitalist reached out to his tower erector (Dr Coyne) group at [facility] in [place] and requested transfer for managing him at a cardiology facility, with a possible CARMEN and cardioversion, and Dr. Proctor stated cardiology would be consultants and to please have them put on the medical service. He was accepted by the [facility] and transferred in stable condition by air transport on 01/23/2020. 2) Hypotension As above. He was running blood pressures of 80-100 systolic at the time of transfer. 3) Acute on chronic systolic heart failure Was given supplemental oxygen and started on Lasix IV. Patient was able to report that his last ejection fraction was 48%. I performed a bedside limited Echo which showed that he had four-chamber enlargement, LVEF was approximately 20%, RV function was very poor, he had a small circumferential pericardial effusion also. 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 Continue to be orthopneic and tachypneic and required supp l,emental O2 by n.c. at the time of transfer. ABG was done before transfer and was stable. 4) CAD He was kept on his antiplatelet agents, statin. His other cardiac meds were on hold because of his hypotension. 5) MAUREEN on CPAP His home CPAP device was ordered to be used here. 6) Hx HTN His home meds were on hold because of hypotension. 7) Hx hyperlipidemia His home statin was continued. - ALLERGIES Allergies/Adverse Reactions: Allergies Allergy/AdvReac Type Severity Reaction Status Date / Time JORDANA Inhibitors Allergy Edema Verified 07/31/18 15:45 ARB-Angiotensin Receptor Allergy Edema Verified 07/31/18 15:45 Antagonist - MEDICATIONS Home Medications: Ambulatory Orders Medication Instructions Recorded Confirmed Calcium Carb, Citrate/Vit D3 1 tab ORAL DAILY 01/21/15 01/23/20 [Calcium + D3 ER Tablet] Nitroglycerin 0.4 mg SL Q5M PRN 01/21/15 01/23/20 Rivaroxaban [Xarelto] 20 mg PO QDDINNER 01/21/15 01/23/20 carvediloL [Carvedilol] 3.125 mg PO BID 10/02/17 01/23/20 Simvastatin [Zocor] 20 mg PO QPM 07/31/18 01/23/20 - PHYSICAL EXAM AT DISCHARGE General Appearance: positive: Mild distress (Respiratory distress, sitting up right) Eyes Bilateral: positive: Normal inspection, EOMI ENT: positive: ENT inspection nml, No signs of dehydration Neck: positive: Nml inspection, Other (Positive JVD) Respiratory: positive: Rales Cardiovascular: positive: Irregularly irregular (Tachycardic) Abdomen: positive: Non-tender, Other (Obese, cannot rule out organomegaly) Skin: positive: Warm, Dry Extremities: positive: Other (1+ pretibial edema) Neurologic/Psychiatric: positive: Oriented x3, Motor nml - LABS Result Diagrams: 01/23/20 04:13 01/23/20 04:13 - DIAGNOSTIC IMAGING Diagnostic Imaging Results: Final report reviewed - FOLLOW UP Follow Up: This will be determined after discharge from [facility]. - TIME SPENT Time Spent in Discharge (Minutes): 60
[2020-01-23 14:12] LABS: ABG BASE EXCESS 2.5 mmol/L (-2.0-3.0); ABG HCO3 26.7 mmol/L (22.0-26.0); ABG PCO2 40 mmHg (34-45); ABG PH 7.45 (7.35-7.45); ABG PO2 88 mmHg (80-100); ABG TCO2 27.9 MMOL/L (21.0-29.0)
[2020-01-23 14:13] LABS: ABG FRACTION OF INSPIRED O2 0.28; ABG OXYGEN SATURATION 97 % (94-98); ALLEN TEST POSITIVE
[2020-01-23 15:19] VITALS: BP 151/78
[2020-01-23] MEDS ORDERED: RIVAROXABAN 10 MG TABLET PO SCH (17:00)
[2020-01-23] MEDS ORDERED: ATORVASTATIN 10 MG TABLET PO SCH (21:00)
== END 2020-01-23 14:30 | disposition short-term general hospital (02) | DRG 308 ==
LOC: EDUNIT# → ED 17:57 → ICU 20:09
PROVIDERS: ADMIT Internal Medicine; ATTEND Internal Medicine
DX: I48.91 Unspecified atrial fibrillation (principal); I50.23 Acute on chronic systolic (congestive) heart failure; I11.0 Hypertensive heart disease with heart failure; I95.9 Hypotension, unspecified; I50.9 Heart failure, unspecified; E78.5 Hyperlipidemia, unspecified; I25.10 Atherosclerotic heart disease of native coronary artery without angina pectoris; G47.33 Obstructive sleep apnea (adult) (pediatric); G47.30 Sleep apnea, unspecified; N40.1 Benign prostatic hyperplasia with lower urinary tract symptoms; R35.1 Nocturia; H54.7 Unspecified visual loss; H91.90 Unspecified hearing loss, unspecified ear; Z66 Do not resuscitate; Z20.828 Contact with and (suspected) exposure to other viral communicable diseases; Z79.01 Long term (current) use of anticoagulants; Z79.899 Other long term (current) drug therapy; Z95.5 Presence of coronary angioplasty implant and graft; Z86.73 Personal history of transient ischemic attack (TIA), and cerebral infarction without residual deficits; R06.00 Dyspnea, unspecified; R60.0 Localized edema
CPT/HCPCS: 36415; 36600; 71045; 80048; 80053; 82803; 83690; 83735; 83880; 84100; 84484; 85025; 85610; 87150; 87631; 93005; 96374; 96375; 96376; 99284; 99285; A9270; U0004; 0202U